=== PATIENT | female | born 1945 | race Caucasian/White ===

== ENCOUNTER → 2019-02-05 | Outpatient (CLI) | payer MEDICARE | END | disposition home or self-care (01) | LOC: LAB EV 23:10 → LAB SHORT 23:10 | DX: N18.9 Chronic kidney disease, unspecified (principal); M81.0 Age-related osteoporosis without current pathological fracture; R19.5 Other fecal abnormalities | CPT/HCPCS: 87015; 87045; 87046; 87205; 87329; 87493; 87899 ==

== ENCOUNTER 2020-05-18 19:34 | Inpatient (IN) | payer MEDICARE ==
[~2020-05-18] VITALS: Ht 160 cm; Wt 99.8 kg
[2020-05-18 20:02] LABS: PCO2 Arterial 61.2 mmHg (35-45); pH Blood Arterial 7.29 (7.35-7.45)
[2020-05-18 20:03] LABS: BASOPHILS ABSOLUTE AUTO 0.07 K/mm3 (0.00-0.23); BASOPHILS PERCENT AUTO 1 % (0-2); EOSINOPHILS ABSOLUTE AUTO 0.97 K/mm3 (0.00-0.68); EOSINOPHILS PERCENT AUTO 7 % (0-6); Hematocrit 41.8 % (33.0-51.0); Hemoglobin 12.5 g/dL (11.5-16.0); IMMATURE GRAN PERCENT AUTO 1 % (0-1); LYMPHOCYTES ABSOLUTE AUTO 2.68 K/mm3 (0.84-5.20); LYMPHOCYTES PERCENT AUTO 18 % (21-46); MONOCYTES ABSOLUTE AUTO 1.36 K/mm3 (0.16-1.47); MONOCYTES PERCENT AUTO 9 % (4-13); Mean Corpuscular HGB 27.1 pg (26.0-34.0); Mean Corpuscular HGB Conc 29.9 g/dL (31.5-36.5); Mean Corpuscular Volume 91 fL (80-100); Mean Platelet Volume 10.3 fL (9.1-12.4); NEUTROPHILS ABSOLUTE AUTO 9.55 K/mm3 (1.96-9.15); NEUTROPHILS PERCENT AUTO 65 % (41-73); Platelet Count 241 K/mm3 (150-400); RDW Coefficient Variation 15.4 % (11.7-14.2); RDW Standard Deviation 50.6 fL (35.1-46.3); Red Blood Cell Count 4.62 M/mm3 (3.80-5.20); White Blood Cell Count 14.73 K/mm3 (4.00-11.30)
[2020-05-18] MEDS ORDERED: METFORMIN HCL500 M2 PO (20:13)
[2020-05-18 20:26] LABS: Alanine Aminotransfer (ALT/SGP 30 U/L (12-78); Albumin, Blood 3.7 g/dL (3.4-5.0); Albumin/Globulin Ratio 1.1 (0.8-1.8); Alk Phos 83 U/L (50-136); Anion Gap 6 mmol/L (6-16); Aspartate Aminotrans (AST/SGOT 35 U/L (12-37); Bilirubin, Total 0.6 mg/dL (0.1-1.0); Blood Urea Nitrogen 52 mg/dL (8-24); Bun/Creatinine Ratio 28.4 (12.0-20.0); CO2, Blood 26 mmol/L (21-32); Chloride, Blood 103 mmol/L (98-108); Creatinine, Blood 1.83 mg/dL (0.40-1.00); Globulin, Blood 3.4 g/dL (2.2-4.0); Glomerular Filtration Rate 28 (60-); Glucose, Blood 145 mg/dL (70-99); Potassium, Blood 5.4 mmol/L (3.5-5.5); Sodium, Blood 135 mmol/L (136-145); Total Protein, Blood 7.1 g/dL (6.4-8.2); Troponin I <0.015 ng/mL (0.000-0.040)
[2020-05-18 21:10] LABS: Influenza A, PCR Negative (NEGATIVE); Influenza B, PCR Negative (NEGATIVE); Resp Syncytial Virus, PCR Negative (NEGATIVE); SARS-Cov-2 (COVID-19) PCR, MMC Negative (NEGATIVE)
[2020-05-18] MEDS ORDERED: LOSA25 PO (21:19)
[2020-05-18] MEDS ORDERED: ATOR20 PO (21:19)
[2020-05-18] MEDS ORDERED: POTA10T PO (21:20)
[2020-05-18] MEDS ORDERED: OMEP20ER PO (21:21)
[2020-05-18] MEDS ORDERED: ALBU90OI6 INH (21:23)
--- NOTE | 2020-05-19 00:48 | NUR ---
ADMIT NOTE PT ARRIVED TO PCU FROM ED VIA ED STRETCHER AT APPROX 2300. PT SCOOTED HERSELF FROM ED STRETCHER TO PCU BED, SLOWLY, WITH MINIMAL ASSISTANCE. PT IS A&OX4. SP02>92% ON BIPAP, FI02 30, RR 12. UPON ARRIVAL PT STATED SHE "COULDNT BREATHE" THOUGH STATS WERE IN 90'S. RT IN ROOM TO ASSIST PT AND GIVE BREATHING TREATMENT. PT BASELINE IS 3.5 L NC OF 02. PT TOLERATED TAKING BIPAP OFF AND WEARING NC FOR SHORT TIME TO TAKE EVENING MEDS AND PUT GOWN ON. TELEMETRY READS ST, HR 100'S. PT IS NPO PER ORDERS. NS INFUSING PER EMAR. PT ORIENTED TO ROOM AND CALL LIGHT. WILL CONTINUE TO MONITOR.
[2020-05-19 02:15] LABS: BASOPHILS ABSOLUTE AUTO 0.03 K/mm3 (0.00-0.23); BASOPHILS PERCENT AUTO 0 % (0-2); EOSINOPHILS ABSOLUTE AUTO 0.03 K/mm3 (0.00-0.68); EOSINOPHILS PERCENT AUTO 0 % (0-6); Hematocrit 39.7 % (33.0-51.0); Hemoglobin 11.8 g/dL (11.5-16.0); IMMATURE GRAN ABSOLUTE AUTO 0.08 K/mm3 (0.00-0.10); IMMATURE GRAN PERCENT AUTO 1 % (0-1); LYMPHOCYTES ABSOLUTE AUTO 0.37 K/mm3 (0.84-5.20); LYMPHOCYTES PERCENT AUTO 2 % (21-46); MONOCYTES ABSOLUTE AUTO 0.07 K/mm3 (0.16-1.47); MONOCYTES PERCENT AUTO 1 % (4-13); Mean Corpuscular HGB 26.9 pg (26.0-34.0); Mean Corpuscular HGB Conc 29.7 g/dL (31.5-36.5); Mean Corpuscular Volume 91 fL (80-100); Mean Platelet Volume 10.9 fL (9.1-12.4); NEUTROPHILS ABSOLUTE AUTO 14.58 K/mm3 (1.96-9.15); NEUTROPHILS PERCENT AUTO 96 % (41-73); Platelet Count 212 K/mm3 (150-400); RDW Coefficient Variation 15.3 % (11.7-14.2); RDW Standard Deviation 51.7 fL (35.1-46.3); Red Blood Cell Count 4.38 M/mm3 (3.80-5.20); White Blood Cell Count 15.16 K/mm3 (4.00-11.30)
[2020-05-19 02:16] LABS: Base Excess Venous 0.6 mmol/L; Bicarbonate Venous 23.9 mmol/L (24.0-30.0); PCO2 Venous 56.4 mmHg (38-42); PO2 Venous 55.6 mmHg (38-42); pH Blood Venous 7.29 (7.34-7.37)
[2020-05-19 02:31] LABS: Bun/Creatinine Ratio 30.3 (12.0-20.0); Calcium, Blood 8.3 mg/dL (8.5-10.1); Creatinine, Blood 2.01 mg/dL (0.40-1.00); Potassium, Blood 5.5 mmol/L (3.5-5.5)
--- NOTE | 2020-05-19 06:01 | NUR ---
SHIFT SUMMARY PT A&OX4. SP02>92% ON BIPAP, FI02 30. PT WAS ABLE TO REMOVE BIPAP AND WEAR NC @ 4L TO PERFORM ORAL CARE. TELEMETRY READS SR, HR 80'S. PT STATES NO PAIN. C/O OF WEAKNESS. PT ATTEMPTED TO USE BEDPAN TWICE TO VOID WITH NO SUCCESS. WANTED TO AMBULATE TO BATHROOM BUT STATES HAS BEEN TOO WEAK AT HOME TO AMBULATE. PT REMAINS NPO EXCEPT FOR MEDS PER ORDERS. NS INFUSING PER EMAR. CALL LIGHT WITHIN REACH. WILL CONTINUE TO MONITOR.
[2020-05-19 08:02] LABS: Source, Urine Catheter
[2020-05-19 08:10] LABS: Appearance, Urine Clear (Clear); Bilirubin, Urine Neg (Neg); Blood, Urine Neg (Neg); Color, Urine Yellow (P-Yellow); Glucose Qualitative, Urine Neg (Neg); Ketones, Urine Neg (Neg); Leukocyte Esterase, Urine Neg (Neg); Nitrite, Urine Neg (Neg); Protein, Urine Neg (Neg); Urobilinogen, Urine NORM (Normal)
[2020-05-19 11:33] LABS: Adenovirus Not Detected (NOT DETECT); Bordetella pertussis Not Detected (NOT DETECT); Chlamydophila pneumoniae Not Detected (NOT DETECT); Coronavirus 229E Not Detected (NOT DETECT); Coronavirus HKU1 Not Detected (NOT DETECT); Coronavirus NL63 Not Detected (NOT DETECT); Coronavirus OC43 Not Detected (NOT DETECT); Human Metapneumovirus Not Detected (NOT DETECT); Human Rhinovirus/Enterovirus Not Detected (NOT DETECT); Influenza A/2009-H1 Not Detected (NOT DETECT); Influenza A/H1 Not Detected (NOT DETECT); Influenza A/H3 Not Detected (NOT DETECT); Influenza B Not Detected (NOT DETECT); Mycoplasma pneumoniae Not Detected (NOT DETECT); Parainfluenza Virus 1 Not Detected (NOT DETECT); Parainfluenza Virus 2 Not Detected (NOT DETECT); Parainfluenza Virus 3 Not Detected (NOT DETECT); Parainfluenza Virus 4 Not Detected (NOT DETECT); Respiratory Syncytial Virus Not Detected (NOT DETECT); SARS-Cov-2 (COVID-19), BioFire Not Detected (NOT DETECT)
--- NOTE | 2020-05-19 16:39 | NUR ---
TRANSFER NOTE- PT ARRIVED ON MEDICAL FLOOR, REPORT COMPLETED VIA TELEPHONE PRIOR TO TRANSFER. PT LUNG SOUNDS COARSE AND CRACKLY. HARSH, MOIST PRODUCTIVE COUGH NOTED ON ARRIVAL SPUTUM SAMPLE COLLECTED EARLIER TODAY AND SENT TO THE LAB. PT DOES NOT APPEAR TO BE IN DISTRESS, CALLED RT SIMRAN FOR CONT BIOX TO MONITOR O2 SATS. PT IN BED WITH THE CALL LIGHT IN REACH, IV IS POSITIONAL.
--- NOTE | 2020-05-19 17:06 | NUR ---
PT SUMMARY: STATUS CHANGED TO MEDICAL WITH TELE. PT ALERT AND ORIENTED AT BASELINE, VITALS HRR SR/ST 90-110'S, BP SYSTOLIC 120, SATS ABOVE 90% ON 3.5L OF 02 ALTERNATES BIPAP FIO2 30% PT STILL GETS SOB/SOB WITH EXERTION. WAS ABLE TO WORK WITH PT/OT DESATS TO 86% RECOVERS QUICK ON 4L OF O2. DIET RESUMED TO CARDIAC. PT WAS BLADDER SCANNED AT THE BEGINNING OF THE SHIFT PT C/O NOT BEING ABLE TO URINATE >700MLS OBTAINED, ORDER TO PUT PETTIT IN PLACE HAD 900MLS OUT. URINE CLEAR YELLOW IN APPEARANCE. PT WAS UP IN THE RECLINER MOST OF THE SHIFT TOELERATED WELL. NS RUNNING AT 50MLS/HR, WAS ALSO STARTED ON IV ABO. PT WAS TRANSFERRED TO RM 327, REPORT GIVEN TO JOSEPH DONNELLY, PT TRANSFERRED VIA BED, ALL BELONGINGS SENT WITH PT.
--- NOTE | 2020-05-19 19:26 | NUR ---
SHIFT SUMMARY- PT ALERT AND ORIENTED X4 1PA FOR TRANSFERS. PT CURRENTLY UP IN THE RECLINER PER HER REQUEST. PT SATS DROPPED TO THE LOW 80'S AND WAS NOT INCREASING ABOVE 88% UNTIL O2 FLOW WAS INCREASED TO 5L. CALLED RT VASILE AND HE CAME TO SEE THE PT. SHE JUST COMPLETED A BREATHING Tx. SINUS TACH AT 111 ON TELE AT THE TIME OF SHIFT CHANGE. RESP RATE MORE REGULAR AT THIS TIME, NO LONGER PURSED LIP BREATHING. PASSED ALL ON IN BEDSIDE REPORT TO NIGHT CONY KRAMER.
[2020-05-19] MEDS ORDERED: PRED20 PO (23:38)
--- NOTE | 2020-05-20 04:32 | NUR ---
SHIFT SUMMARY PATIENT HAD NO ACUTE CHANGES OBSERVED. ON 5L O2 NC AND 3.5L O2 BASELINE. SOB WITH EXERTION. RT IN FOR MULTIPLE BREATHING TX AND UP TO 7L FOR FIFTEEN MINUTES PER RT WHEN SOB AND BACK TO 5L. REFUSED BIPAP MULTIPLE TIMES. CBG 231. DENIES PAIN AND N/V. PETTIT PATENT AND DRAINING. PIV REMAINS INTACT. PARTS REMOVER REPORTS NSR 99. CONTINUOUS PULSE OXIMETRY STATING 97%. AXO X3 AND ONE ASSIST. COOPERATIVE WITH CARE. CALL LIGHT IN REACH. BED IN LOWEST POSITION. WILL CONTINUE TO MONITOR UNTIL DAY SHIFT NURSE ASSUMES CARE.
[2020-05-20 05:58] LABS: BASOPHILS ABSOLUTE AUTO 0.01 K/mm3 (0.00-0.23); BASOPHILS PERCENT AUTO 0 % (0-2); EOSINOPHILS ABSOLUTE AUTO 0.01 K/mm3 (0.00-0.68); EOSINOPHILS PERCENT AUTO 0 % (0-6); Hematocrit 39.2 % (33.0-51.0); IMMATURE GRAN ABSOLUTE AUTO 0.08 K/mm3 (0.00-0.10); IMMATURE GRAN PERCENT AUTO 1 % (0-1); LYMPHOCYTES ABSOLUTE AUTO 0.52 K/mm3 (0.84-5.20); LYMPHOCYTES PERCENT AUTO 3 % (21-46); MONOCYTES ABSOLUTE AUTO 0.18 K/mm3 (0.16-1.47); MONOCYTES PERCENT AUTO 1 % (4-13); Mean Corpuscular HGB 27.6 pg (26.0-34.0); Mean Corpuscular HGB Conc 30.6 g/dL (31.5-36.5); Mean Corpuscular Volume 90 fL (80-100); Mean Platelet Volume 11.1 fL (9.1-12.4); NEUTROPHILS ABSOLUTE AUTO 14.56 K/mm3 (1.96-9.15); NEUTROPHILS PERCENT AUTO 95 % (41-73); Platelet Count 191 K/mm3 (150-400); RDW Coefficient Variation 15.1 % (11.7-14.2); Red Blood Cell Count 4.35 M/mm3 (3.80-5.20); White Blood Cell Count 15.36 K/mm3 (4.00-11.30)
[2020-05-20 06:17] LABS: Albumin, Blood 3.5 g/dL (3.4-5.0); Bilirubin, Total 0.3 mg/dL (0.1-1.0); Bun/Creatinine Ratio 36.8 (12.0-20.0); C-REACTIVE PROTEIN, EXT RANGE 1.18 mg/dL (0.000-0.300); Calcium, Blood 8.9 mg/dL (8.5-10.1); Creatinine, Blood 1.82 mg/dL (0.40-1.00); Globulin, Blood 3.4 g/dL (2.2-4.0); Magnesium, Blood 2.8 mg/dL (1.6-2.4); Phosphorus, Blood 4.4 mg/dL (2.5-4.9); Potassium, Blood 5.4 mmol/L (3.5-5.5); Total Protein, Blood 6.9 g/dL (6.4-8.2)
--- NOTE | 2020-05-20 07:20 | NUR ---
CALLED RT SIMRAN- PT ON THE BSC AT CHANGE OF SHIFT, SHE HAD AN ACCIDENT ON HER WAY TO THE [facility], PT HAD AN INCREASED WORK OF BREATHING AND NIGHT STAFF HAD INCREASED O2 TO 7L. SATS 91% WITH THE PURSED LIP BREATHING AND ACCESSORY MUSCLE USE. ONCE PT WAS CLEANED AND IN THE RECLINER RT CAME IN PLACED PT ON OXEMIZER AND ADMINISTERED A Tx. PT DID NOT WEAR HER BIPAP LAST NIGHT SHE STATED SHE WAS COUGHING UP A LOT OF STUFF AND DIDNT WANT TO PUT THE MASK ON. PT WAS ENCOURAGED TO WEAR THE MASK THIS MORNING SO SHE COULD RECOVER FROM THE STRESS OF THE MOVEMENT. RT IS STILL AT THE BEDSIDE NOW.
--- NOTE | 2020-05-20 18:46 | NUR ---
SHIFT SUMMARY- PT ALERT AND ORIENTED 1PA WITH TRANSFERS. PT HAS HAD A COUPLE OF EPISODES TODAY WHEN SHE GETS UP TO THE TOILET (BSC) HER SATS DROP AND SHE HAS TROUBLE RECOVERING, RT WAS CALLED O2 CHANGED FROM NC TO OXIMIEZER AND PT WAS PLACED ON BIPAP TO AID IN RECOVERY. THE LAST EPISODE DID NOT REQUIRE THE BIPAP FOR THE PT TO RECOVER JUST THE OXIMEIZER AND AN O2 INCREASE TO 5L VIA NC. PT WILL USE THE BIPAP TONIGHT. WILL PASS ALL ON IN BEDSIDE REPORT TO NIGHT RN. PT SEEMS TO BE FEELING BETTER THIS EVENING 2 SOFT BM'S TODAY, PT HAS URGENCY WHEN SHE NEEDS TO HAVE A BM AND THERE HAVE BEEN SOME ACCIDENTS, STAFF SHOULD BE PREPARED.
--- NOTE | 2020-05-21 03:41 | NUR ---
SHIFT SUMMARY PATIENT HAD NO ACUTE CHANGES OBSERVED. AXOX 3 AND ONE ASSIST TO BSC. ON 4L O2 OXIMIZER AND ON 6L O2 FOR RECOVERY WHEN UP TO CHAIR OR BSC. WILL DESTAT INTO THE 80'S WHEN GETTING UP. RT IN FOR MULTIPLE BREATHING TX. WEARS BIPAP INTERMITTENTLY. VSS/AFEBRILE. DENIES PAIN AND N/V. CBG 169. PROJECT COORDINATOR RN REPORTS NSR 90. PETTIT PATENT AND DRAINING. XANAX GIVEN X ONE FOR ANXIETY. PATIENT DESTATS WHEN ANXIOUS. REPORTS LESS ANXIETY. CALL LIGHT IN REACH. BED IN LOWEST POSITION. WILL CONTINUE TO MONITOR UNTIL DAY SHIFT NURSE ASSUMES CARE.
[2020-05-21 05:05] LABS: BASOPHILS ABSOLUTE AUTO 0.01 K/mm3 (0.00-0.23); BASOPHILS PERCENT AUTO 0 % (0-2); EOSINOPHILS PERCENT AUTO 0 % (0-6); Hematocrit 40.2 % (33.0-51.0); Hemoglobin 11.8 g/dL (11.5-16.0); IMMATURE GRAN PERCENT AUTO 1 % (0-1); LYMPHOCYTES ABSOLUTE AUTO 0.48 K/mm3 (0.84-5.20); LYMPHOCYTES PERCENT AUTO 4 % (21-46); MONOCYTES ABSOLUTE AUTO 0.27 K/mm3 (0.16-1.47); MONOCYTES PERCENT AUTO 2 % (4-13); Mean Corpuscular HGB 26.8 pg (26.0-34.0); Mean Corpuscular HGB Conc 29.4 g/dL (31.5-36.5); Mean Corpuscular Volume 91 fL (80-100); Mean Platelet Volume 10.3 fL (9.1-12.4); NEUTROPHILS ABSOLUTE AUTO 12.75 K/mm3 (1.96-9.15); NEUTROPHILS PERCENT AUTO 94 % (41-73); Platelet Count 206 K/mm3 (150-400); RDW Coefficient Variation 15.1 % (11.7-14.2); RDW Standard Deviation 51.3 fL (35.1-46.3); White Blood Cell Count 13.61 K/mm3 (4.00-11.30)
[2020-05-21 05:30] LABS: Bun/Creatinine Ratio 40.2 (12.0-20.0); Calcium, Blood 9.1 mg/dL (8.5-10.1); Creatinine, Blood 1.89 mg/dL (0.40-1.00); Potassium, Blood 5.7 mmol/L (3.5-5.5)
--- NOTE | 2020-05-21 19:31 | NUR ---
PT UP TO CHAIR MOST OF THE DAY, IS BEGINNING TO LOOK AND FEEL BETTER, NOT DESATTING MUCH WITH ACTIVITY. NO ACUTE CHANGES NOTED, WILL CONTINUE TO MONITOR AND REPORT TO ONCOMING RN
--- NOTE | 2020-05-22 05:13 | NUR ---
SHIFT SUMMARY ASSUMED CARE OF PT AT 1900. PT IS A/OX4. HEART SOUNDS DISTANT, TELE SHOWS SINUS PAC @ 94. LUNG SOUNDS HAVE WHEEZES T/O, PT RECEIVED BREATHING TREATMENTS T/O THE NIGHT. PT IS ON 3-4L NC T/O THE NIGHT. PT ONLY TOLERATED CPAP FOR ABOUT 2 HOURS LAST NIGHT. PT HAS A PETTIT, URINE IS CLEAR AND YELLOW. PT ASKED FOR TYLENOL FOR BACK PAIN AND XANAX FOR HER ANXIETY ONCE. PT SLEPT ON AND OFF T/O THE NIGHT. CALL LIGHT IN REACH, BED IN LOWEST POSTION, WILL CONTINUE TO MONITOR.
[2020-05-22 05:27] LABS: BASOPHILS ABSOLUTE AUTO 0.01 K/mm3 (0.00-0.23); BASOPHILS PERCENT AUTO 0 % (0-2); EOSINOPHILS ABSOLUTE AUTO 0.01 K/mm3 (0.00-0.68); EOSINOPHILS PERCENT AUTO 0 % (0-6); Hematocrit 40.6 % (33.0-51.0); Hemoglobin 11.9 g/dL (11.5-16.0); IMMATURE GRAN ABSOLUTE AUTO 0.12 K/mm3 (0.00-0.10); IMMATURE GRAN PERCENT AUTO 1 % (0-1); LYMPHOCYTES ABSOLUTE AUTO 0.35 K/mm3 (0.84-5.20); LYMPHOCYTES PERCENT AUTO 3 % (21-46); MONOCYTES ABSOLUTE AUTO 0.31 K/mm3 (0.16-1.47); MONOCYTES PERCENT AUTO 3 % (4-13); Mean Corpuscular HGB 26.7 pg (26.0-34.0); Mean Corpuscular HGB Conc 29.3 g/dL (31.5-36.5); Mean Corpuscular Volume 91 fL (80-100); Mean Platelet Volume 10.7 fL (9.1-12.4); NEUTROPHILS ABSOLUTE AUTO 9.79 K/mm3 (1.96-9.15); NEUTROPHILS PERCENT AUTO 93 % (41-73); Platelet Count 191 K/mm3 (150-400); RDW Coefficient Variation 14.9 % (11.7-14.2); RDW Standard Deviation 50.3 fL (35.1-46.3); Red Blood Cell Count 4.46 M/mm3 (3.80-5.20); White Blood Cell Count 10.59 K/mm3 (4.00-11.30)
[2020-05-22 05:52] LABS: Albumin, Blood 3.3 g/dL (3.4-5.0); Bilirubin, Total 0.2 mg/dL (0.1-1.0); Bun/Creatinine Ratio 45.6 (12.0-20.0); Calcium, Blood 8.6 mg/dL (8.5-10.1); Creatinine, Blood 1.71 mg/dL (0.40-1.00); Globulin, Blood 3.3 g/dL (2.2-4.0); Potassium, Blood 5.6 mmol/L (3.5-5.5); Total Protein, Blood 6.6 g/dL (6.4-8.2)
--- NOTE | 2020-05-22 17:33 | NUR ---
PATIENT A/OX4, UP WITH FWW AND 1 ASSIST. DYSPNEIC WITH EXERTION, O2 3-5L VIA NC TODAY TO MAINTAIN SATS. CPAP IN ROOM, PATIENT DOESN'T TOLERATE WELL. TYLENOL GIVEN X1 FOR BACK PAIN AND XANAX FOR ANXIETY. PATIENT IS TOLERATING CARDIAC/ADA DIET. BLOOD SUGARS ACHS, COVERAGE PER SS. HODAN BERRIOS'Blanca TODAY AT 1545. DR JONES CONSULTING. COOPERATIVE WITH CARE, CALLS APPROPRIATELY FOR ASSISTANCE.
--- NOTE | 2020-05-23 04:27 | NUR ---
SHIFT SUMMARY ASSUMED CARE OF PT AT 1900. PT IS A/OX4. HEART SOUNDS REGULAR, TELE SHOWS SINUS TACH WITH PAC @ 105. LUNG SOUNDS HAVE WHEEZING T/O, RT CONSULTED WITH CARE, PT TOLERATED CPAP FOR ABOUT 2 HOURS. PT WAS CONTIENT AND WALKED TO BATHROOM WITH WALKER. NO ACUTE EVENTS DURING THE NIGHT. PT SLEPT MOST OF THE NIGHT. CALL LIGHT IN REACH, BED IN LOWEST POSTION.
[2020-05-23 05:45] LABS: Hematocrit 40.5 % (33.0-51.0)
[2020-05-23 06:11] LABS: CPK Creatine Kinase 89 U/L (26-193); Magnesium, Blood 2.6 mg/dL (1.6-2.4); Uric Acid, Blood 6.6 mg/dL (2.6-6.0)
[2020-05-23 06:12] LABS: Alanine Aminotransfer (ALT/SGP 54 U/L (12-78); Albumin, Blood 3.3 g/dL (3.4-5.0); Alk Phos 58 U/L (50-136); Anion Gap 4 mmol/L (6-16); Aspartate Aminotrans (AST/SGOT 32 U/L (12-37); Bilirubin, Direct <0.1 mg/dL (0.0-0.3); Bilirubin, Indirect Unable to Calculate mg/dL (0.1-0.7); Bilirubin, Total 0.2 mg/dL (0.1-1.0); Blood Urea Nitrogen 88 mg/dL (8-24); Bun/Creatinine Ratio 51.2 (12.0-20.0); CO2, Blood 31 mmol/L (21-32); Calcium, Blood 8.5 mg/dL (8.5-10.1); Chloride, Blood 102 mmol/L (98-108); Creatinine, Blood 1.72 mg/dL (0.40-1.00); Globulin, Blood 3.2 g/dL (2.2-4.0); Glomerular Filtration Rate 31 (60-); Glucose, Blood 140 mg/dL (70-99); Phosphorus, Blood 5.5 mg/dL (2.5-4.9); Potassium, Blood 4.7 mmol/L (3.5-5.5); Sodium, Blood 137 mmol/L (136-145); Total Protein, Blood 6.5 g/dL (6.4-8.2)
--- NOTE | 2020-05-23 18:04 | NUR ---
SHIFT SUMMARY- PT IS A/O, PLESANT AND COOPERATIVE. SHE IS EATING AND DRINKING WELL. HER O2 SATS HAVE MAINTAINED THIS SHIFT. SHE WAS UP TO THE CHAIR FOR MOST OF THIS SHIFT. SHE HAD A VISITOR THIS AFTERNOON. HER BED IS IN THE LOW POSITION AND CALL LIGHT IS WITHIN REACH.
--- NOTE | 2020-05-24 04:58 | NUR ---
SHIFT SUMMARY ASSUMED CARE OF PT AT 1900. PT IS A/OX4. HEART SOUNDS REGULAR, TELE SHOWS SINUS TACH PAC @ 95. LUNG SOUNDS HAVE INSPIRATORY AND EXPIRIATORY WHEEZING, PT HAS BEEN ON 3 L T/O THE NIGHT. PT TOLERATED CPAPA FOR ABOUT 3 HOURS DURING THE NIGHT. PT WAS A 1P SBA WITH WALKER TO BATHROOM AND CHAIR. NO ACUTE EVENTS DURING THE NIGHT. PT WAS ABLE TO SLEEP DURING THE NIGHT. CALL LIGHT IN REACH, BED IN LOWEST POSTION.
[2020-05-24 05:25] LABS: Hematocrit 36.8 % (33.0-51.0)
[2020-05-24 05:38] LABS: Albumin, Blood 3.1 g/dL (3.4-5.0); Anion Gap 1 mmol/L (6-16); Blood Urea Nitrogen 84 mg/dL (8-24); CO2, Blood 36 mmol/L (21-32); Calcium, Blood 8.2 mg/dL (8.5-10.1); Chloride, Blood 100 mmol/L (98-108); Creatinine, Blood 1.68 mg/dL (0.40-1.00); Glomerular Filtration Rate 31 (60-); Glucose, Blood 132 mg/dL (70-99); Magnesium, Blood 2.6 mg/dL (1.6-2.4); Phosphorus, Blood 4.5 mg/dL (2.5-4.9); Potassium, Blood 4.3 mmol/L (3.5-5.5); Sodium, Blood 137 mmol/L (136-145)
--- NOTE | 2020-05-24 17:35 | NUR ---
ADMIT: 05/18/20 DISCHARGE: DX: arf with hypoxia CC: cpeabody ERIC CALL: RESIDENCE: home, with family?? CAREGIVER: Child Cole [phone] child Aman [phone] DX: copd. chronic back pain, ckd, djd htn, dm2 see list DME: oxygen 3 l/m 24 hours, 4 ww, electric wheelchair CCM: no record HOME HEALTH: no record SUMMARY: Admit 05/18/20 05/24/20 Chart review, PT OT both recommend SNF vs Home health, Adwoa is improving but still desaturates needing 6 l/m with activity. Normally at home requires 3 l/m 24 hours. Will discuss SNF preference with Adwoa Sunday. Possible eta for snf Sunday per Dr Burroughs.cp 05/23/20- per chart review with Dr. Vera. Rob as consulted with pt. due to acute on chronic Kidney disease. Pt still requiring oxygen, 4L. Still having significant [place]. No est. ETA for d/c at this time. -kjw 05/20/20 PT and OT rec SNF for rehab, Per Dr Franks no ETA for discharge at this time..cp 05/19/20 No ETA discharge. cp 05/18/20 IMPRESSION: 1. Acute hypoxic and hypercapnic respiratory failure in the setting of chronic obstructive pulmonary disease with exacerbation and bilateral pneumonia. The patient placed on the BiPAP. We will put the patient on Solu-Medrol and BD protocol. The patient started on Rocephin, Zithromax, and IV fluids. Sputum culture, blood cultures have been ordered.
--- NOTE | 2020-05-24 19:29 | NUR ---
SHIFT SUMMARY: PT A&O; CALM AND COOPERATIVE WITH CARE. NO C/O PAIN THIS SHIFT. TELE IN PLACE; ST @ 130 AFTER TRIP TO ; HR 80-90s. PT USES 3.5-4L O2 @ HOME; IN HOSPITAL PT IS REQUIRING 3L @ REST; 6L WITH EXERTION. PO STEROIDS CHANGED TO IV STEROIDS THIS SHIFT; LUNGS REMAIN WHEEZY. REPORT GIVEN TO ONCOMING RN.
--- NOTE | 2020-05-25 05:29 | NUR ---
EGG PROCESSING SUPERVISOR SUMMARY PT AAOX4 AND VERY PLEASANT. CALLS APPROPRIATELY FOR ASSISTANCE. REMAINS ON 4L O2 VIA NC AND THEN USING CPAP AT NIGHT. PT HAVING SOME THICK SPUTUM PRODUCTION THAT SHE REPORTS "GETS STUCK" SOMETIMES. ASSISTED PT WITH PULMONARY TOILETING TECHNIQUES TO CLEAR SPUTUM. PT DOES DESAT AND GET SOB WITH EXERTION, HAS BEEN GETTING [place] [facility] [place]HR[place]OM DUE TO THIS. DENIES PAIN. VSS, WILL CONTINUE TO MONITOR.
[2020-05-25 05:30] LABS: BASOPHILS ABSOLUTE AUTO 0.01 K/mm3 (0.00-0.23); BASOPHILS PERCENT AUTO 0 % (0-2); EOSINOPHILS PERCENT AUTO 0 % (0-6); Hematocrit 39.1 % (33.0-51.0); Hemoglobin 11.8 g/dL (11.5-16.0); IMMATURE GRAN ABSOLUTE AUTO 0.11 K/mm3 (0.00-0.10); IMMATURE GRAN PERCENT AUTO 1 % (0-1); LYMPHOCYTES PERCENT AUTO 5 % (21-46); MONOCYTES ABSOLUTE AUTO 0.18 K/mm3 (0.16-1.47); MONOCYTES PERCENT AUTO 2 % (4-13); Mean Corpuscular HGB 26.9 pg (26.0-34.0); Mean Corpuscular HGB Conc 30.2 g/dL (31.5-36.5); Mean Corpuscular Volume 89 fL (80-100); Mean Platelet Volume 10.6 fL (9.1-12.4); NEUTROPHILS ABSOLUTE AUTO 8.45 K/mm3 (1.96-9.15); NEUTROPHILS PERCENT AUTO 91 % (41-73); Platelet Count 158 K/mm3 (150-400); RDW Coefficient Variation 14.5 % (11.7-14.2); RDW Standard Deviation 47.2 fL (35.1-46.3); Red Blood Cell Count 4.39 M/mm3 (3.80-5.20); White Blood Cell Count 9.25 K/mm3 (4.00-11.30)
[2020-05-25 05:54] LABS: Albumin, Blood 3.4 g/dL (3.4-5.0); Anion Gap 4 mmol/L (6-16); Blood Urea Nitrogen 68 mg/dL (8-24); Bun/Creatinine Ratio 46.6 (12.0-20.0); CO2, Blood 35 mmol/L (21-32); Calcium, Blood 8.4 mg/dL (8.5-10.1); Chloride, Blood 100 mmol/L (98-108); Creatinine, Blood 1.46 mg/dL (0.40-1.00); Glomerular Filtration Rate 37 (60-); Glucose, Blood 162 mg/dL (70-99); Magnesium, Blood 2.6 mg/dL (1.6-2.4); Phosphorus, Blood 3.5 mg/dL (2.5-4.9); Potassium, Blood 4.2 mmol/L (3.5-5.5); Sodium, Blood 139 mmol/L (136-145)
--- NOTE | 2020-05-25 18:46 | NUR ---
SHIFT SUMMARY: NO ACUTE CHANGES TO REPORT THIS SHIFT. PT A&O; CALM AND COOPERATIVE WITH CARE. NO C/O PAIN/ NAUSEA THIS SHIFT. O2 @ 3-4L @ REST, 6L WITH EXERTION; PT IS SLOW TO RECOVER AFTER PHYSICAL ACTIVITY. IV STEROIDS CONTINUING. WCTM.
--- NOTE | 2020-05-25 19:10 | NUR ---
ASSUMED CARE RECEIVED REPORT FROM CONY ZHANG. ASSUMED CARE OF PT. RESTING COMFORTABLY, NO S/S ACUTE DISTRESS NOTED. DENIES NEEDS AT THIS TIME. CALL LIGHT, POSSESSIONS IN REACH, TM.
--- NOTE | 2020-05-25 19:14 | NUR ---
SUMMARY: ADMIT 05/18/20 05/25/20 MET WITH ROSE, REVIEWED EFM ASSESSMENT, PT OT RECOMMEND SNF, ROSE REFUSES SNF. HAS FAMILY HOME WITH HER AT ALL TIMES. RESPIRATORY THERAPY IS RECOMMENDING A TRILOGY FOR NOCTURNAL VENTILATION, LAURITA IS SENDING A PARACHUTE ORDER TO DR WELSH TO COMPLETE AND SIGN. LAURITA WILL SET UP TRIOLOGY BEFORE SHE DISCHARGES HOME. ETA DISCHARGE SUNDAY PER DR WELSH ROSE USES [facility] AT [facility]. FAMILY CAN PICK HER UP FOR TRANSPORATION HOME. PLAN TO FOLLOW PATIENT UP TO DISCHARGE. CP
--- NOTE | 2020-05-26 04:12 | NUR ---
SHIFT SUMMARY PT ASLEEP, NO S/S ACUTE DISTRESS NOTED. WAS MONITORED EVERY 1-2 HOURS WITH NEEDS MET. VS REVIEWED, WNL, 02 SATS STABLE ON CPAP/NC, O2 SATS RECOVER WELL POST ACTIVITY. PT DENIES PAIN OR NEEDS. CALL LIGHT, POSSESSIONS IN REACH, BED IN LOW POSITION. CONTINUE TO MONITOR UNTIL DAY RN ASSUMES CARE.
[2020-05-26 04:54] LABS: Hematocrit 39.3 % (33.0-51.0); Hemoglobin 11.8 g/dL (11.5-16.0)
[2020-05-26 05:19] LABS: Albumin, Blood 3.4 g/dL (3.4-5.0); Anion Gap 5 mmol/L (6-16); Blood Urea Nitrogen 79 mg/dL (8-24); Bun/Creatinine Ratio 52.3 (12.0-20.0); CO2, Blood 40 mmol/L (21-32); Calcium, Blood 8.1 mg/dL (8.5-10.1); Chloride, Blood 95 mmol/L (98-108); Creatinine, Blood 1.51 mg/dL (0.40-1.00); Glomerular Filtration Rate 36 (60-); Glucose, Blood 151 mg/dL (70-99); Magnesium, Blood 2.5 mg/dL (1.6-2.4); Phosphorus, Blood 4.3 mg/dL (2.5-4.9); Potassium, Blood 3.7 mmol/L (3.5-5.5); Sodium, Blood 140 mmol/L (136-145)
--- NOTE | 2020-05-26 16:46 | NUR ---
05/26/[address] Burroughs, possible discharge as early as . Using 5 l/m of oxygen today at rest and with exertion. Did not desaturate during activity. If continues to use 5 l/m, will need new home oxygen evaluation prior to discharge to increase liter. Need to change oxygen order in parachute and send to [facility]. PT Changed recommendation to: PT Follow-Up/ Home Health Setting/ Home Caregiver Assist/ [employer]/ [facility] to deliver Triliogy today for Adwoa to use tonight in hosptial. Nocturnal 02 bleed in 3-4 l/m. Discussed Trilogy and insurance coverage with Adwoa, she feels the benefit of the therapy and understands that will help her CO2 levels stay lower.
--- NOTE | 2020-05-26 16:53 | NUR ---
PATIENT A/OX4, UP WITH FWW AND SBA. 4-6LO2 TO MAINTAIN SATS, LUNGS DIMINISHED THROUGHOUT. TYLENOL GIVEN X1 TODAY FOR HEADACHE. TOLERATING ADA DIET, ACHS BLOOD SUGARS. VERY PLEASANT AND COOPERATIVE WITH CARE. STATES SHE IS FEELING MUCH BETTER AND IS HOPING TO DC HOME TOMORROW.
--- NOTE | 2020-05-27 05:04 | NUR ---
SHIFT SUMMARY PT A/O. PLEASANT AND COOPERATIVE. PT CONTINUED TO HAVE SOB W/ EXERTION. REQUIRING 4-6 L O2 VIA NC THIS EVENING. 4 L AT REST AND 6 W/ EXERTION. NEW TRILOGY BIPAP WITH NEW MASK ATTEMPTED THIS EVENING. PT TOLERATED FOR APPROX 4 HOURS BUT HAD SOME DIFFICULTY WITH MASK LEAKING. RT ATTEMPTED TO MAKE MASK WORK MULTIPLE TIMES AND EVENTUALLY PLACED PT BACK ON NASAL CANNULA. PT SLEPT WELL THROUGH MOST OF THE NIGHT. TELEMETRY READING SINUS TACH W/ PAC'S AT 103. POTENTIAL PLAN FOR D/C HOME TODAY. VITAL SIGNS STABLE. WILL CONTINUE TO MONITOR AND REPORT TO DAY RN.
[2020-05-27 05:14] LABS: Hematocrit 37.7 % (33.0-51.0); Hemoglobin 11.6 g/dL (11.5-16.0)
[2020-05-27 05:29] LABS: Albumin, Blood 3.2 g/dL (3.4-5.0); Anion Gap 3 mmol/L (6-16); Blood Urea Nitrogen 86 mg/dL (8-24); Bun/Creatinine Ratio 56.6 (12.0-20.0); CO2, Blood 43 mmol/L (21-32); Calcium, Blood 8.4 mg/dL (8.5-10.1); Chloride, Blood 93 mmol/L (98-108); Creatinine, Blood 1.52 mg/dL (0.40-1.00); Glomerular Filtration Rate 35 (60-); Glucose, Blood 160 mg/dL (70-99); Magnesium, Blood 2.6 mg/dL (1.6-2.4); Potassium, Blood 3.8 mmol/L (3.5-5.5); Sodium, Blood 139 mmol/L (136-145)
[2020-05-27] MEDS ORDERED: GUAI600T33 PO (17:00)
[2020-05-27] MEDS ORDERED: CITA20 PO (17:00)
--- NOTE | 2020-05-27 18:43 | NUR ---
PATIENT D/C'D TO HOME WITH FAMILY. RX MEDICATIONS FAXED TO [facility] ON [address]. DC INSTRUCTIONS AND EDUCATION DISCUSSED WITH PATIENT AND COPY PROVIDED. [facility]. [facility] WILL CALL PATIENT WITH FOLLOW UP APPT. PATIENT DENIES ANY FURTHER QUESTIONS OR CONCERNS.
--- NOTE | 2020-05-27 18:47 | NUR ---
SUMMARY: Admit 05/18/20 05/27/20 Discharge home with family. Daughter to pick her up, discussed transition of care call from Judy and schedule 1 week follow up appointment. Sent oxygen order to [facility], patient wanted to switch companys from [employer]. Now requires 4 l/m 24 hours a day and bleed into Trilogy. Patient has port for bleed in at home. Taking home Trilogy non invaisive ventilator from hospital to start using tonight. Ordered home health PT from [facility], Discussed all care coordinated prior to discharge, contact
== END 2020-05-27 18:27 | disposition home or self-care (01) | DRG 871 ==
LOC: ER 19:34 → MEDS 22:17 → PCU 22:17 → MEDS 05-19 16:33
PROVIDERS: Emergency Medicine; Family Medicine; Hospitalist; Internal Medicine Nephrology; ADMIT Family Medicine
DX: A41.9 Sepsis, unspecified organism (principal); J96.21 Acute and chronic respiratory failure with hypoxia; J96.22 Acute and chronic respiratory failure with hypercapnia; J18.9 Pneumonia, unspecified organism; I13.0 Hypertensive heart and chronic kidney disease with heart failure and stage 1 through stage 4 chronic kidney disease, or unspecified chronic kidney disease; N17.9 Acute kidney failure, unspecified; E87.1 Hypo-osmolality and hyponatremia; Z20.822 Contact with and (suspected) exposure to COVID-19; I50.9 Heart failure, unspecified; N18.30 Chronic kidney disease, stage 3 unspecified; E11.22 Type 2 diabetes mellitus with diabetic chronic kidney disease; I71.4 Abdominal aortic aneurysm, without rupture; G89.4 Chronic pain syndrome; E83.39 Other disorders of phosphorus metabolism; E87.5 Hyperkalemia; F41.1 Generalized anxiety disorder; E11.65 Type 2 diabetes mellitus with hyperglycemia; J43.9 Emphysema, unspecified; Z87.891 Personal history of nicotine dependence; E88.09 Other disorders of plasma-protein metabolism, not elsewhere classified; E03.9 Hypothyroidism, unspecified; E78.5 Hyperlipidemia, unspecified; Z99.81 Dependence on supplemental oxygen; E11.42 Type 2 diabetes mellitus with diabetic polyneuropathy; M17.11 Unilateral primary osteoarthritis, right knee; R26.0 Ataxic gait; E66.01 Morbid (severe) obesity due to excess calories; D64.9 Anemia, unspecified; R65.20 Severe sepsis without septic shock
CPT/HCPCS: 0202U; 0241U; 36415; 36600; 51700; 51702; 71045; 71250; 74176; 76770; 80048; 80053; 80069; 81003; 82248; 82550; 82803; 82947; 83036; 83605; 83690; 83735; 83880; 84100; 84132; 84145; 84484; 84550; 85014; 85018; 85025; 86038; 86140; 87040; 87070; 87205; 93005; 93010; 93306; 94640; 94660; 94664; 94667; 94668; 94761; 94762; 96365; 96367; 97110; 97116; 97161; 97166; 97530; 97535; 98960; 99285-25; A9270; A9270-GY; J0456; J0696; J1650; J1940; J1956; J2920; J2930; J7030; J7050; J7512

== ENCOUNTER 2020-05-30 23:23 | Inpatient (IN) | payer MEDICARE ==
[~2020-05-30] VITALS: Ht 160 cm; Wt 99.5 kg
[~2020-05-30 23:23] MED LIST: ALBU90OI6 INH; ATOR20 PO; CITA20 PO; GUAI600T33 PO; LOSA25 PO; METFORMIN HCL500 M2 PO; OMEP20ER PO; POTA10T PO; PRED20 PO
[2020-05-31 00:08] LABS: BASOPHILS ABSOLUTE AUTO 0.02 K/mm3 (0.00-0.23); BASOPHILS PERCENT AUTO 0 % (0-2); EOSINOPHILS ABSOLUTE AUTO 0.14 K/mm3 (0.00-0.68); EOSINOPHILS PERCENT AUTO 1 % (0-6); Hematocrit 36.7 % (33.0-51.0); Hemoglobin 10.9 g/dL (11.5-16.0); IMMATURE GRAN PERCENT AUTO 1 % (0-1); LYMPHOCYTES PERCENT AUTO 5 % (21-46); MONOCYTES ABSOLUTE AUTO 1.06 K/mm3 (0.16-1.47); MONOCYTES PERCENT AUTO 7 % (4-13); Mean Corpuscular HGB 26.7 pg (26.0-34.0); Mean Corpuscular HGB Conc 29.7 g/dL (31.5-36.5); Mean Corpuscular Volume 90 fL (80-100); Mean Platelet Volume 11.5 fL (9.1-12.4); NEUTROPHILS ABSOLUTE AUTO 14.11 K/mm3 (1.96-9.15); NEUTROPHILS PERCENT AUTO 87 % (41-73); Platelet Count 110 K/mm3 (150-400); RDW Standard Deviation 49.6 fL (35.1-46.3); Red Blood Cell Count 4.08 M/mm3 (3.80-5.20); White Blood Cell Count 16.23 K/mm3 (4.00-11.30)
[2020-05-31 00:26] LABS: Bilirubin, Total 0.8 mg/dL (0.1-1.0); Bun/Creatinine Ratio 42.5 (12.0-20.0); Creatinine, Blood 0.99 mg/dL (0.40-1.00); Globulin, Blood 3.1 g/dL (2.2-4.0); Potassium, Blood 3.6 mmol/L (3.5-5.5); Total Protein, Blood 6.1 g/dL (6.4-8.2); Troponin I 0.037 ng/mL (0.000-0.040)
--- NOTE | 2020-05-31 03:24 | NUR ---
PT ADMITTED FROM ED AT 0236, RECEIVED REPORTED FROM CONY MORGAN. PT A&OX4, ABLE TO MAKE NEEDS KNOWN. PLEASANT AND COOPERATIVE T/O ADMISSION PROCESS. PT WAS ABLE TO TRANSFER WITH SBA FROM [facility] TO BED. PT ON 3.5LPM O2 VIA NC. NO C/O ANY DISCOMFORT DURING THIS ASSESSMENT. PT CALM AND RESTED IN BED AT THIS TIME. BED AT LOWEST POSITION, CALL LIGHT WITHIN REACH.
[2020-05-31 05:22] LABS: BASOPHILS ABSOLUTE AUTO 0.01 K/mm3 (0.00-0.23); BASOPHILS PERCENT AUTO 0 % (0-2); EOSINOPHILS ABSOLUTE AUTO 0.02 K/mm3 (0.00-0.68); EOSINOPHILS PERCENT AUTO 0 % (0-6); Hematocrit 37.4 % (33.0-51.0); Hemoglobin 11.1 g/dL (11.5-16.0); IMMATURE GRAN ABSOLUTE AUTO 0.07 K/mm3 (0.00-0.10); IMMATURE GRAN PERCENT AUTO 1 % (0-1); LYMPHOCYTES ABSOLUTE AUTO 0.23 K/mm3 (0.84-5.20); LYMPHOCYTES PERCENT AUTO 2 % (21-46); MONOCYTES ABSOLUTE AUTO 0.17 K/mm3 (0.16-1.47); MONOCYTES PERCENT AUTO 1 % (4-13); Mean Corpuscular HGB 26.6 pg (26.0-34.0); Mean Corpuscular HGB Conc 29.7 g/dL (31.5-36.5); Mean Corpuscular Volume 90 fL (80-100); Mean Platelet Volume 11.4 fL (9.1-12.4); NEUTROPHILS ABSOLUTE AUTO 13.71 K/mm3 (1.96-9.15); NEUTROPHILS PERCENT AUTO 97 % (41-73); Platelet Count 87 K/mm3 (150-400); RDW Coefficient Variation 15.1 % (11.7-14.2); RDW Standard Deviation 48.9 fL (35.1-46.3); Red Blood Cell Count 4.17 M/mm3 (3.80-5.20); White Blood Cell Count 14.21 K/mm3 (4.00-11.30)
[2020-05-31 05:50] LABS: Albumin, Blood 3.1 g/dL (3.4-5.0); Bilirubin, Total 0.7 mg/dL (0.1-1.0); Bun/Creatinine Ratio 37.8 (12.0-20.0); Calcium, Blood 8.7 mg/dL (8.5-10.1); Creatinine, Blood 1.11 mg/dL (0.40-1.00); Globulin, Blood 3.2 g/dL (2.2-4.0); Potassium, Blood 3.6 mmol/L (3.5-5.5); Total Protein, Blood 6.3 g/dL (6.4-8.2)
--- NOTE | 2020-05-31 06:21 | NUR ---
PT CALM AND RESTED IN BED AT THIS TIME. NO C/O PAIN OR ANY DISCOMFORT. CONT ON 3.5LPM OF O2 VIA NC. SAT AT 93%. DENIES CP, SOB, OR N&V. BED AT LOWEST POSITION, CALL LIGHT WITHIN REACH.
--- NOTE | 2020-05-31 16:36 | NUR ---
ADMIT: 05/31/20 DISCHARGE: DX: Shortness of breath CC:cpeabody ADMIT: 05/18/20 DISCHARGE: 05/27/20 DX: arf with hypoxia CC: cpeabody ERIC CALL: Call Ad[facility]a at home for eric. RESIDENCE: Home CAREGIVER: kishore Luna, Child, Aman Blankenship, Child, DX: COPD, CKD, HTN, Heart disease, see list DME:DME: oxygen 3 l/m 24 hours, 4 ww, electric wheelchair, Bathroom Bars, new shower with bench. [facility] - Triliogy non invaisive ventilator, Oxygen switched to [facility] 4 l/m 24 hours and bleed into trilogy.CCM: none [facility] 05/27/20 SUMMARY: Admit: 05/31/20 05/31/20 Met with eric [place] letter on board, ETA discharge SUN or per Dr Gallagher. Cesario, Pulmonary Educator was concered that she may need Anxiety medication and steroids to return home with. She felt as though she was suffocating with Trilogy on and when she laid back. She is a side sleeper, unable to lay on side at home. She has a bed at home that is adustable, does not need hospital bed. Will follow for discharge planning home. cp 1. A 74-year-old female coming in with an acute chronic obstructive pulmonary disease exacerbation with a component of acute on chronic diastolic heart failure exacerbation.
--- NOTE | 2020-05-31 17:51 | NUR ---
SHIFT SUMMARY UP IN CHAIR THIS AFTERNOON. HAS BEEN INDEPENDENT TO CHAIR AND BSC. VOIDING WITH NO PROBLEM. O2 WAS A 4.5L/M BUT DECREASED TO 3L/M WITH INCREASED SOB. INCREASED BACK TO 3.5L/M WITH RESOLUTION. MEDICATED FOR PAIN ONCE TODAY WITH NO NEW REPORTS. DAUGHTER AT BEDSIDE FOR SHORT TIME. NO RESP DISTRESS NOTED BEYOND O2 BEING DECREASED.
--- NOTE | 2020-06-01 03:50 | NUR ---
SHIFT SUMMARY: VSS. AFEB. AAOX4. ABLE TO COMMUNICATE NEEDS. 02 96% ON 3.5L VIA NC. EXP WHEEZE IN [place], BASES DIM. ATIVAN AT HS, PT SLEPT THROUGH THE NIGHT W/BIPAP IN PLACE WITHOUT DIFFICULTY. SINUS TACH, 102, W/ PAC'S. SOLU MEDROL PER ORDERS. RESPS REGULAR, EVEN, NON-LABORED AT REST. PT STATES SHE IS FEELING A LOT BETTER OVERALL. NO ACUTE CONCERNS AT THIS TIME. WILL CONT TO MONITOR.
[2020-06-01 05:52] LABS: Bun/Creatinine Ratio 41.4 (12.0-20.0); Calcium, Blood 8.5 mg/dL (8.5-10.1); Creatinine, Blood 1.52 mg/dL (0.40-1.00); Potassium, Blood 4.5 mmol/L (3.5-5.5)
[2020-06-01 11:13] LABS: BASOPHILS ABSOLUTE AUTO 0.02 K/mm3 (0.00-0.23); BASOPHILS PERCENT AUTO 0 % (0-2); EOSINOPHILS PERCENT AUTO 0 % (0-6); Hematocrit 36.8 % (33.0-51.0); Hemoglobin 10.8 g/dL (11.5-16.0); IMMATURE GRAN ABSOLUTE AUTO 0.07 K/mm3 (0.00-0.10); IMMATURE GRAN PERCENT AUTO 0 % (0-1); LYMPHOCYTES ABSOLUTE AUTO 0.48 K/mm3 (0.84-5.20); LYMPHOCYTES PERCENT AUTO 3 % (21-46); MONOCYTES ABSOLUTE AUTO 0.11 K/mm3 (0.16-1.47); MONOCYTES PERCENT AUTO 1 % (4-13); Mean Corpuscular HGB 27.2 pg (26.0-34.0); Mean Corpuscular HGB Conc 29.3 g/dL (31.5-36.5); Mean Corpuscular Volume 93 fL (80-100); Mean Platelet Volume 12.4 fL (9.1-12.4); NEUTROPHILS ABSOLUTE AUTO 15.18 K/mm3 (1.96-9.15); NEUTROPHILS PERCENT AUTO 96 % (41-73); Platelet Count 123 K/mm3 (150-400); RDW Coefficient Variation 15.2 % (11.7-14.2); Red Blood Cell Count 3.97 M/mm3 (3.80-5.20); White Blood Cell Count 15.86 K/mm3 (4.00-11.30)
--- NOTE | 2020-06-01 17:52 | NUR ---
06/01/[address] Gallagher, ETA discharge back home . Will follow for discharge planning, will need Home health resumed at discharge. Mil, PT OT.
--- NOTE | 2020-06-01 18:03 | NUR ---
SHIFT SUMMARY PT HAD EPISODE OF FEELING LIKE A PIECE OF APPLE GOT STUCK IN HER THROAT AND WAS ATTEMPTING TO COUGH IT UP WITH DIFFICULTY. SATS BEGAN DROPPING. NEBULIZER CALLED FOR AND SLOWLY PT WAS ABLE TO RECOVER. O2 PLACED IN MOUTH AT THE TIME WITH SATS IMPROVING. PT HAS BEEN WITHOUT RESP DIFFICULTY SINCE EPISODE. TOOK A SHOWER AND REPORTED MINIMAL SOB WITH ACTIVITY. WALKING TO BATHROOM INDEPENDENTLY AFTER BEING SEEN BY P.T. AND RECEIVING APPROVAL. GRANDSON IN TO VISIT.
--- NOTE | 2020-06-02 05:39 | NUR ---
SHIFT SUMMARY NO ACUTE CHANGES TO REPORT THIS SHIFT. PT HAS TOLERATED HER BIPAP WELL WITH A PAIN PILL AND ATIVAN RIGHT BEFORE BED. PT STATES THE COMBO HAS WORKED WELL FOR HER IN ALLEVIATING PAIN AND THE ANXIETY THAT COMES WITH WEARING THE BIPAP. SATS WNL T/O THE NIGHT. VITALS STABLE. PT INDEPENDENT IN THE ROOM, AND HAS HAD A RESTFUL NIGHT. BED IN LOWEST POSITION, CALL LIGHT WITHIN REACH.
[2020-06-02 05:44] LABS: BASOPHILS ABSOLUTE AUTO 0.01 K/mm3 (0.00-0.23); BASOPHILS PERCENT AUTO 0 % (0-2); EOSINOPHILS PERCENT AUTO 0 % (0-6); Hematocrit 34.9 % (33.0-51.0); Hemoglobin 10.6 g/dL (11.5-16.0); IMMATURE GRAN ABSOLUTE AUTO 0.09 K/mm3 (0.00-0.10); IMMATURE GRAN PERCENT AUTO 1 % (0-1); LYMPHOCYTES ABSOLUTE AUTO 0.44 K/mm3 (0.84-5.20); LYMPHOCYTES PERCENT AUTO 3 % (21-46); MONOCYTES ABSOLUTE AUTO 0.15 K/mm3 (0.16-1.47); MONOCYTES PERCENT AUTO 1 % (4-13); Mean Corpuscular HGB 27.2 pg (26.0-34.0); Mean Corpuscular HGB Conc 30.4 g/dL (31.5-36.5); Mean Corpuscular Volume 90 fL (80-100); Mean Platelet Volume 11.4 fL (9.1-12.4); NEUTROPHILS ABSOLUTE AUTO 12.72 K/mm3 (1.96-9.15); NEUTROPHILS PERCENT AUTO 95 % (41-73); Platelet Count 119 K/mm3 (150-400); RDW Coefficient Variation 15.4 % (11.7-14.2); RDW Standard Deviation 49.9 fL (35.1-46.3); White Blood Cell Count 13.41 K/mm3 (4.00-11.30)
[2020-06-02 06:01] LABS: Bun/Creatinine Ratio 55.1 (12.0-20.0); Calcium, Blood 8.5 mg/dL (8.5-10.1); Creatinine, Blood 1.58 mg/dL (0.40-1.00); Potassium, Blood 4.8 mmol/L (3.5-5.5)
--- NOTE | 2020-06-02 11:23 | NUR ---
CALLED DR ALBERT- PT HAD A 2 SECOND RUN OF SVT RATE UP TO 170-180 PER SAP BASIS ADMINISTRATOR EDDIE. RYTHM STRIP IN HAND. CHECKED VITALS. PT STATED SHE WAS SITTING IN HER CHAIR AND WHEN QUESTIONED PT STATED SHE HAD A MOMENT THAT FELT LIKE A HICCUP FOR 1 SECOND SHE HAD TO CATCH HER BREATH BUT SHE STATED SHE "BARELY NOTICED." CALLED WHO CAME TO THE BEDSIDE AND REVIEWED THE RYTHM STRIP. PT HAS BEEN SITTING UP IN A CHAIR MOST OF THE MORNING AND HER FEET NOW HAVE +1 EDEMA ONLY TRACE EDEMA WAS NOTED ON ASSESSMENT THIS MORNING.
--- NOTE | 2020-06-02 15:00 | NUR ---
PT HR IS NOW STABLE AT LESS THAN 100. WILL CTM.
--- NOTE | 2020-06-02 18:18 | NUR ---
SHIFT SUMMARY- PT HAD A SHORT RUN OF SVT TODAY, SEE PREVIOUS NOTES FOR DETAILS. MED CHANGES WERE MADE AND PT HR HAS REMAINED STABLE. PT HAS NAPPED OFF AND ON T/O THE AFTERNOON USING BIPAP WHEN STAFF DISCOVERED SHE WAS SLEEPING. PT HAS BEEN TOLLERATING THE BIPAP WELL, ATIVAN HELPS ALOT (PER PT). PT IS CURRENTLY SITTING UP IN THE CHAIR EATING DINNER. PT C/O SOME PAIN IN HER LOW BACK AND REQUESTED FLEXERIL WHICH SEEMED TO HELP. O2 SATS MAINTAIN AT 88% OR BETTER ON 4L VIA NC HOWEVER WHEN THE PT AMBULATES HER SATS DROP TO THE LOW 80'S. SATS MAINTAIN WITH AMBULATION AROUND THE ROOM AT 5L VIA NC. THE PT DOES NOT CALL BEFORE AMBULATING SO O2 WAS KEPT AT 5L WHILE SHE WAS UP IN THE CHAIR FOR SAFETY TO PREVENT SOB AND POTENTIAL FALL R/T SOB. SPOKE WITH RT ZENDEJAS THIS MORNING AND SHE IS AWARE OF THE INCREASED O2 REQUIREMENT WITH ACTIVITY.
--- NOTE | 2020-06-02 18:45 | NUR ---
ASSUMED CARE RECEIVED REPORT FROM CONY RUIZ. PT SITTING UP IN CHAIR, NO ACUTE S/S DISTRESS NOTED, RESPS E/U, O2 SATS STABLE ON 5L/NC. DENIES NEEDS AT THIS TIME. CALL LIGHT, POSSESSIONS IN REACH. CONTINUE TO MONITOR.
--- NOTE | 2020-06-03 04:52 | NUR ---
SHIFT SUMMARY PT ASLEEP, NO ACUTE DISTRESS NOTED. WAS MONITORED EVERY 1-2 HOURS WITH NEEDS MET. NO ACUTE NEEDS NOTED AT THIS TIME. HAS BEEN WEARING BIPAP FOR 8 HOURS OF NOW, APPEARS TO BE TOLERATING WELL, AFTER ADMINISTRATION OF PO ATIVAN AT HS. VS REVIEWED, WNL; O2 SATS STABLE ON BIPAP, IN MID 90'S. RESPS E/U. NO CARDIAC EVENTS OVERNIGHT, HR AVERAGING IN THE 60-70'S. DENIES CP, PRESSURE, NO C/O "HICCUPS." DENIES PAIN. CALL LIGHT, POSSESSIONS IN REACH, WILL MONITOR AND PROVIDE CARE UNTIL REPORT GIVEN TO DAY RN.
[2020-06-03 05:13] LABS: BASOPHILS ABSOLUTE AUTO 0.01 K/mm3 (0.00-0.23); BASOPHILS PERCENT AUTO 0 % (0-2); EOSINOPHILS PERCENT AUTO 0 % (0-6); Hematocrit 35.1 % (33.0-51.0); Hemoglobin 10.4 g/dL (11.5-16.0); IMMATURE GRAN ABSOLUTE AUTO 0.08 K/mm3 (0.00-0.10); IMMATURE GRAN PERCENT AUTO 1 % (0-1); LYMPHOCYTES ABSOLUTE AUTO 0.62 K/mm3 (0.84-5.20); LYMPHOCYTES PERCENT AUTO 5 % (21-46); MONOCYTES PERCENT AUTO 6 % (4-13); Mean Corpuscular HGB 26.7 pg (26.0-34.0); Mean Corpuscular HGB Conc 29.6 g/dL (31.5-36.5); Mean Corpuscular Volume 90 fL (80-100); Mean Platelet Volume 11.9 fL (9.1-12.4); NEUTROPHILS ABSOLUTE AUTO 12.25 K/mm3 (1.96-9.15); NEUTROPHILS PERCENT AUTO 89 % (41-73); Platelet Count 128 K/mm3 (150-400); RDW Coefficient Variation 15.3 % (11.7-14.2); RDW Standard Deviation 49.9 fL (35.1-46.3); Red Blood Cell Count 3.89 M/mm3 (3.80-5.20); White Blood Cell Count 13.76 K/mm3 (4.00-11.30)
[2020-06-03 05:37] LABS: Albumin, Blood 2.8 g/dL (3.4-5.0); Bilirubin, Total 0.4 mg/dL (0.1-1.0); Bun/Creatinine Ratio 67.9 (12.0-20.0); Calcium, Blood 7.6 mg/dL (8.5-10.1); Creatinine, Blood 1.56 mg/dL (0.40-1.00); Globulin, Blood 2.9 g/dL (2.2-4.0); Potassium, Blood 5.1 mmol/L (3.5-5.5); Total Protein, Blood 5.7 g/dL (6.4-8.2)
[2020-06-03] MEDS ORDERED: TUSSIN MUC100 MG/5 M PO (14:32)
--- NOTE | 2020-06-03 16:42 | NUR ---
DISCHARGE NOTE- PT WAS GIVEN VERBAL AND WRITTEN DISCHARGE INSTRUCTIONS AND ACKNOWLEDGED UNDERSTANDING OF THEM. PT GRANDSON PRESENT FOR DISCHARGE TEACHING. PT HAD HER HOME O2 WITH HER AT THE TIME OF DISCHARGE SET TO 6L. PT IV AND TELE WERE DC'D PRIOR TO DISCHARGE AND PT WAS ESCORTED OUT VIA WC BY THE PHLEBOTOMY INSTRUCTOR. NO S&S OF DISTRESS AT THE TIME OF DISCHARGE.
[2020-06-04 16:09] LABS: HEPARIN INDUCED PLATELET AB 0.069 OD (0.000-0.400)
== END 2020-06-03 16:28 | disposition home or self-care (01) | DRG 291 ==
LOC: ER 23:23 → MEDS 05-31 02:25
PROVIDERS: Emergency Medicine; Internal Medicine; ADMIT Internal Medicine
DX: I13.0 Hypertensive heart and chronic kidney disease with heart failure and stage 1 through stage 4 chronic kidney disease, or unspecified chronic kidney disease (principal); I50.33 Acute on chronic diastolic (congestive) heart failure; J96.21 Acute and chronic respiratory failure with hypoxia; I47.1 Supraventricular tachycardia; J43.9 Emphysema, unspecified; N18.30 Chronic kidney disease, stage 3 unspecified; E11.22 Type 2 diabetes mellitus with diabetic chronic kidney disease; G62.9 Polyneuropathy, unspecified; E03.9 Hypothyroidism, unspecified; Z99.81 Dependence on supplemental oxygen; D69.6 Thrombocytopenia, unspecified; F41.9 Anxiety disorder, unspecified
CPT/HCPCS: 36415; 71045; 71250; 80048; 80053; 82947; 83605; 83880; 84484; 85025; 86022; 87040; 87070; 87205; 94640; 94644; 94660; 94664; 94668; 94760; 94761; 94762; 96365; 96367; 96375; 97110; 97162; 97165; 97535; 98960; 99285-25; A9270; J0456; J0696; J1100; J1650; J1940; J2405; J2930; J7050; J7512

== ENCOUNTER 2020-06-06 11:43 | Inpatient (IN) | payer MEDICARE ==
[~2020-06-06] VITALS: Ht 160 cm; Wt 99.5 kg
[~2020-06-06 11:43] MED LIST changes: +TUSSIN MUC100 MG/5 M PO
[2020-06-06 12:07] LABS: BASOPHILS ABSOLUTE AUTO 0.02 K/mm3 (0.00-0.23); BASOPHILS PERCENT AUTO 0 % (0-2); EOSINOPHILS ABSOLUTE AUTO 0.15 K/mm3 (0.00-0.68); EOSINOPHILS PERCENT AUTO 1 % (0-6); Hematocrit 34.6 % (33.0-51.0); Hemoglobin 10.4 g/dL (11.5-16.0); IMMATURE GRAN ABSOLUTE AUTO 0.03 K/mm3 (0.00-0.10); IMMATURE GRAN PERCENT AUTO 0 % (0-1); LYMPHOCYTES ABSOLUTE AUTO 0.69 K/mm3 (0.84-5.20); LYMPHOCYTES PERCENT AUTO 7 % (21-46); MONOCYTES ABSOLUTE AUTO 0.73 K/mm3 (0.16-1.47); MONOCYTES PERCENT AUTO 7 % (4-13); Mean Corpuscular HGB 27.4 pg (26.0-34.0); Mean Corpuscular HGB Conc 30.1 g/dL (31.5-36.5); Mean Corpuscular Volume 91 fL (80-100); Mean Platelet Volume 11.7 fL (9.1-12.4); NEUTROPHILS ABSOLUTE AUTO 9.03 K/mm3 (1.96-9.15); NEUTROPHILS PERCENT AUTO 85 % (41-73); Platelet Count 81 K/mm3 (150-400); RDW Coefficient Variation 15.3 % (11.7-14.2); RDW Standard Deviation 50.7 fL (35.1-46.3); Red Blood Cell Count 3.79 M/mm3 (3.80-5.20); White Blood Cell Count 10.65 K/mm3 (4.00-11.30)
[2020-06-06 12:22] LABS: Bilirubin, Total 0.5 mg/dL (0.1-1.0); Bun/Creatinine Ratio 37.8 (12.0-20.0); Calcium, Blood 8.6 mg/dL (8.5-10.1); Creatinine, Blood 1.11 mg/dL (0.40-1.00); Globulin, Blood 2.9 g/dL (2.2-4.0); Potassium, Blood 4.3 mmol/L (3.5-5.5); Total Protein, Blood 5.9 g/dL (6.4-8.2); Troponin I 0.03 ng/mL (0.000-0.040)
[2020-06-06] MEDS ORDERED: CARV6.25 PO (13:38)
[2020-06-06] MEDS ORDERED: LORA1 PO (13:39)
[2020-06-06] MEDS ORDERED: Prednisone10 MG PO (13:40)
[2020-06-06] MEDS ORDERED: BUME2 PO (13:41)
[2020-06-06] MEDS ORDERED: GABAPENTIN600 MG PO (13:42)
[2020-06-06] MEDS ORDERED: SPIRIVA RESPIMAT4 G3 INH (13:42)
[2020-06-06] MEDS ORDERED: OXYCODONE-ACET1 EAC3 PO (13:42)
[2020-06-06] MEDS ORDERED: SYNTHROID137 MCG PO (13:43)
[2020-06-06] MEDS ORDERED: AZIT250 PO (13:43)
[2020-06-06] MEDS ORDERED: HYDRA25 PO (13:43)
[2020-06-06] MEDS ORDERED: CYCL10 PO (13:43)
[2020-06-06] MEDS ORDERED: METF500 PO (13:44)
[2020-06-06] MEDS ORDERED: SYMBICORT 16010.2 GM INH (13:44)
[2020-06-06] MEDS ORDERED: ROFL500T PO (13:44)
[2020-06-06] MEDS ORDERED: PRINIVIL10 MG PO (13:44)
[2020-06-06] MEDS ORDERED: IPRAT-ALBUT 0.5-3 ML INH (13:45)
[2020-06-06] MEDS ORDERED: Aspir 8181 MG PO (13:45)
--- NOTE | 2020-06-06 16:49 | NUR ---
PATIENT ARRIVED TO ROOM 324 AT 1635. RT SET UP CONTINUOUS PULSE OXIMETRY AND DECREASED HER O2 TO 2L NC. SATURATIONS OF 92%.
--- NOTE | 2020-06-06 18:11 | NUR ---
PATIENT IS ALERT AND ORIENTED AND COOPERATIVE WITH CARE. SHE IS A SBA TOT HE BSC. USES A WALKER AT HOME. ON 3L O2 VIA NC AT THIS TIME WITH O2 SATURATIONS AT 95%. TELE IS IN PLACE, NSR AT 93 BPM. A PICTURE OF A WOUND ON THE PATIENT'S LEFT BUTTOCKS WAS PLACED ON THE CHART. WILL CONTINUE TO MONITOR
--- NOTE | 2020-06-07 04:01 | NUR ---
SHIFT SUMMARY ASSUMED CARE OF PT AT 1900. PT IS A/OX4. HEART SOUNDS REGULAR. LUNG SOUNDS HAVE EXPIRATORY WHEEZES AND TIGHT. RT CONSULTED WITH CARE, PT RECEIVED BREATHING TREATMENTS T/O THE NIGHT. PT TOLERATED BIPAP WELL DURING THE NIGHT AFTER TAKING HER ATIVAN. PT STATES SHE CANT'T HAVE THE BIPAP ON WITHOUT IT BEUCASE IT MAKES HER FEEL CLAUSTROPHOBIC. PT CONTIENT T/O THE NIGHT. PT ACUTE EVENTS DURING THE NIGHT. PT SLEPT T/O THE NIGHT. CALL LIGHT IN REACH, BED IN LOWEST POSITION.
--- NOTE | 2020-06-07 15:58 | NUR ---
SHIFT SUMMARY- PT ALERT AND ORIENTED, SHE HAS BEEN VERY GROGGY T/O THE SHIFT TODAY. SHE REQUESTED THE BIPAP MACHINE WHEN SHE TOOK HER NAP. O2 SATS SEEM TO BE MAINTAINING WELL AT THIS TIME. RT HAS BEEN TITRATING THE PT O2 SHE IS CURRENTLY ON 2L VIA NC. SATS WENT DOWN TO 87% WHILE THE PT WAS WORKING WITH THERAPY BUT WENT BACK UP WITH REST. PT WAS WILLING TO WORK WITH THERAPY BOTH OT AND PT, ALTHOUGH SHE STATED SHE JUST FEELS REALLY TIRED TODAY. PLAN IS FOR THE PT TO DISCHARGE HOME WITH HOME HEALTH AT THIS TIME. CARE MANAGEMENT IS INVOLVED. PT HAS BEEN IN THE HOSPITAL FREQUENTLY FOR THIS ISSUE, DR PANDEY. SOME MED CHANGES TODAY SEE MAR FOR DETAILS.
--- NOTE | 2020-06-07 15:59 | NUR ---
06/07/20 Met with Adwoa, She is struggling with wearing the Trilogy at home, it is a different bipap than here at the hospital. She promised her Grandson would bring Trilogy to the hospital so RT can work with her here to become adjusted to the different delivery. Palliative care to meet with Adwoa. Pulmonary consult ordered. Per Dr Villafana, no ETA for discharge at this time., New face to face needed for discharge [facility]. cp
--- NOTE | 2020-06-07 17:15 | NUR ---
ADMIT: 06/06/20 DISCHARGE: DX: respiratory failure CC: [email or web address] ADMIT: 05/31/20 DISCHARGE: 06/03/20 DX: SHORTNESS OF BREATH ADMIT: 05/18/20 DISCHARGE: 05/27/20 DX: ARF WITH HYPOXIA CC: ERIC CALL: CALL ROSE AT HOME FOR ERIC RESIDENCE: Home CAREGIVER: ESTEVAN BROWN, CHILD, JONAH QUIROGA, CHILD, Always has someone with her 24 hours a day. DX: COPD, CKD, HTN, HEART DISEASE, SEE LIST DME: OXYGEN 4 rest 6 l/m activity , 4 WW, ELECTRIC WHEELCHAIR, BATHROOM BARS, NEW SHOWER WITH BENCH. LINCARE - TRILIOGY NON INVAISIVE VENTILATOR, OXYGEN SWITCHED TO LINCARE 4 L/M 24 HOURS AND BLEED INTO TRILOGY CCM: none HOME HEALTH: [facility] 05/27/20. resumed 06/03/20 s/w summer at [employer].
--- NOTE | 2020-06-07 19:01 | NUR ---
Spiritual care note: Per admit trigger, I met with Adwoa to offer information on advanced care planning. She informed me that she has a completed Advanced Directive at home. Advised that it would be helpful to have a copy of this on file at [facility]. She odalis ask her grand-daughter to bring a copy in. For now, Adwoa is happy with her Full Code status.
--- NOTE | 2020-06-08 00:58 | NUR ---
74 year old Female with 3rd hospitalization in recent month continues on oxygen 3 l nc & bioxx with no destas noted. HAs C02 retention oh home bipap rx on recent dc home. She says she is unable to tolerate home bipap so needs antianxiety rx to tolerate. Was on ativan 1 mg at HS but that was DC & Klonipin started for anxiety with helpful effect. On IV steroids & PT currently sleeping & tolearating home bipap use.
[2020-06-08 05:22] LABS: BASOPHILS PERCENT AUTO 0 % (0-2); EOSINOPHILS PERCENT AUTO 0 % (0-6); Hematocrit 35.7 % (33.0-51.0); Hemoglobin 11.2 g/dL (11.5-16.0); IMMATURE GRAN ABSOLUTE AUTO 0.05 K/mm3 (0.00-0.10); IMMATURE GRAN PERCENT AUTO 1 % (0-1); LYMPHOCYTES ABSOLUTE AUTO 0.45 K/mm3 (0.84-5.20); LYMPHOCYTES PERCENT AUTO 5 % (21-46); MONOCYTES ABSOLUTE AUTO 0.18 K/mm3 (0.16-1.47); MONOCYTES PERCENT AUTO 2 % (4-13); Mean Corpuscular HGB 28.1 pg (26.0-34.0); Mean Corpuscular HGB Conc 31.4 g/dL (31.5-36.5); Mean Corpuscular Volume 90 fL (80-100); Mean Platelet Volume 10.9 fL (9.1-12.4); NEUTROPHILS ABSOLUTE AUTO 9.32 K/mm3 (1.96-9.15); NEUTROPHILS PERCENT AUTO 93 % (41-73); Platelet Count 106 K/mm3 (150-400); RDW Coefficient Variation 15.4 % (11.7-14.2); RDW Standard Deviation 49.8 fL (35.1-46.3); Red Blood Cell Count 3.99 M/mm3 (3.80-5.20)
[2020-06-08 05:46] LABS: Bilirubin, Total 0.7 mg/dL (0.1-1.0); Calcium, Blood 8.5 mg/dL (8.5-10.1); Creatinine, Blood 1.38 mg/dL (0.40-1.00); Magnesium, Blood 2.4 mg/dL (1.6-2.4); Phosphorus, Blood 3.2 mg/dL (2.5-4.9); Potassium, Blood 4.4 mmol/L (3.5-5.5)
--- NOTE | 2020-06-08 08:54 | NUR ---
CALLED DR BETH- PT HAS PO AND IV LASIX ORDERED. ORDER RECIEVED TO DC IV LASIX. CONTINUE WITH PO LASIX.
--- NOTE | 2020-06-08 14:51 | NUR ---
CALLED DR BETH- PT SBP 108, SHE IS USUALLY HIGHER. PT RECIEVING SCHEDULED HYDRALIZINE ORDER RECIEVED FOR NEW PARAMETERS HOLD FOR SBP LESS THAN 130.
--- NOTE | 2020-06-08 18:23 | NUR ---
SHIFT SUMMARY- PT HAS HAD NO ACUTE CHANGE T/O GABY SHIFT. SHE REMAINS A 1PA FOR SAFETY AND AI CARE WITH THE SMALL SORE ON HER BUTTOCKS. PT HAS HER PERSONAL TRILOGY BIPAP MACHINE IN THE ROOM. PT HAS BEEN MORE ALERT TODAY WHEN COMPARED TO YESTERDAY. STATED TO THE PT SHE HAS TO CHOOSE THE ATIVAN OR THE AMBIEN PT CAN NOT TAKE BOTH. PT IS AWARE. PT HAS REQUESTED HER ATIVAN ABOUT 1 HOUR PRIOR TO BEDTIME.
[2020-06-09] MEDS ORDERED: PRED20 (14:03)
[2020-06-09] MEDS ORDERED: ABAT250V (14:03)
[2020-06-09] MEDS ORDERED: FURO20 PO (14:04)
[2020-06-09] MEDS ORDERED: LACT PO (14:05)
[2020-06-09] MEDS ORDERED: METO25ER PO (14:05)
[2020-06-09] MEDS ORDERED: GUAI600T33 PO (14:05)
[2020-06-09] MEDS ORDERED: CLON.5 PO (14:06)
[2020-06-09] MEDS ORDERED: LEVFLO500 PO (14:06)
--- NOTE | 2020-06-09 15:52 | NUR ---
DISCHARGE NOTE- PT ALERT AND ORIENTED 1P SBA FOR SAFETY. PT DASHA WAS PRESENT FOR DISCHARGE INSTRUCTIONS. PT IV AND TELE WERE DC'D AT THE TIME OF DISCHARGE. PT HAD NO S&S OF DISTRESS. GRANDSON BROUGHT PT HOME O2 TANK FOR PT DISCHARGE. NO FURTHER QUESTIONS AT THE TIME OF DISCHARGE. PT WAS ESCORTED OUT VIA WC BY THE SALESPERSON SHEET MUSIC.
[2020-06-09 16:11] LABS: HEPARIN INDUCED PLATELET AB 0.058 OD (0.000-0.400)
--- NOTE | 2020-06-09 16:25 | NUR ---
SUMMARY: Admit 06/06/20 06/09/20 Discharge home with family. [facility], PT OT Nurse Family to pick her up today, stop by pharmacy for new meds Tolerating Trilogy well. Oxygen 3 l/m rest 4-5 activity. 3 bleed into trilogy. Expecting lamont call to schedule follow up appointment with Derrick.
== END 2020-06-09 15:21 | disposition home health service (06) | DRG 189 ==
LOC: ER 11:43 → MEDS 11:44 → ER 14:05 → MEDS 16:35
PROVIDERS: Emergency Medicine; Hospitalist; ADMIT Internal Medicine
DX: J96.21 Acute and chronic respiratory failure with hypoxia (principal); I13.0 Hypertensive heart and chronic kidney disease with heart failure and stage 1 through stage 4 chronic kidney disease, or unspecified chronic kidney disease; I50.32 Chronic diastolic (congestive) heart failure; J98.11 Atelectasis; J44.1 Chronic obstructive pulmonary disease with (acute) exacerbation; Z23 Encounter for immunization; Z20.822 Contact with and (suspected) exposure to COVID-19; N18.30 Chronic kidney disease, stage 3 unspecified; E11.22 Type 2 diabetes mellitus with diabetic chronic kidney disease; E11.42 Type 2 diabetes mellitus with diabetic polyneuropathy; E03.9 Hypothyroidism, unspecified; J44.9 Chronic obstructive pulmonary disease, unspecified; D69.6 Thrombocytopenia, unspecified; F41.9 Anxiety disorder, unspecified; G89.4 Chronic pain syndrome; Z87.891 Personal history of nicotine dependence; Z88.0 Allergy status to penicillin; Z79.82 Long term (current) use of aspirin; Z79.84 Long term (current) use of oral hypoglycemic drugs; Z79.52 Long term (current) use of systemic steroids; Z79.899 Other long term (current) drug therapy
CPT/HCPCS: 36415; 71045; 80053; 82947; 83735; 83880; 84100; 84145; 84484; 85025; 86022; 87070; 87205; 93005; 93010; 94640; 94660; 94667; 94762; 96365; 96372-59; 96375; 97116; 97161; 97165; 97535; 99285-25; A9270; J1650; J1940; J1956; J2920; J2930

== ENCOUNTER 2020-08-07 17:20 | Inpatient (IN) | payer MEDICARE ==
[~2020-08-07] VITALS: Ht 160 cm; Wt 76.2 kg
[~2020-08-07 17:20] MED LIST changes: +ABAT250V; +AZIT250 PO; +Aspir 8181 MG PO; +BUME2 PO; +CARV6.25 PO; +CLON.5 PO; +CYCL10 PO; +FURO20 PO; +GABAPENTIN600 MG PO; +HYDRA25 PO; +IPRAT-ALBUT 0.5-3 ML INH; +LACT PO; +LEVFLO500 PO; +LORA1 PO; +METF500 PO; +METO25ER PO; +OXYCODONE-ACET1 EAC3 PO; +PRED20; +PRINIVIL10 MG PO; +Prednisone10 MG PO; +ROFL500T PO; +SPIRIVA RESPIMAT4 G3 INH; +SYMBICORT 16010.2 GM INH; +SYNTHROID137 MCG PO
[2020-08-07 18:06] LABS: BASOPHILS ABSOLUTE AUTO 0.05 K/mm3 (0.00-0.23); BASOPHILS PERCENT AUTO 1 % (0-2); EOSINOPHILS ABSOLUTE AUTO 0.88 K/mm3 (0.00-0.68); EOSINOPHILS PERCENT AUTO 9 % (0-6); Hematocrit 31.8 % (33.0-51.0); Hemoglobin 9.8 g/dL (11.5-16.0); IMMATURE GRAN ABSOLUTE AUTO 0.02 K/mm3 (0.00-0.10); IMMATURE GRAN PERCENT AUTO 0 % (0-1); LYMPHOCYTES ABSOLUTE AUTO 1.39 K/mm3 (0.84-5.20); LYMPHOCYTES PERCENT AUTO 15 % (21-46); MONOCYTES ABSOLUTE AUTO 0.78 K/mm3 (0.16-1.47); MONOCYTES PERCENT AUTO 8 % (4-13); Mean Corpuscular HGB 26.6 pg (26.0-34.0); Mean Corpuscular HGB Conc 30.8 g/dL (31.5-36.5); Mean Corpuscular Volume 86 fL (80-100); Mean Platelet Volume 10.7 fL (9.1-12.4); NEUTROPHILS ABSOLUTE AUTO 6.29 K/mm3 (1.96-9.15); NEUTROPHILS PERCENT AUTO 67 % (41-73); Platelet Count 252 K/mm3 (150-400); RDW Coefficient Variation 15.9 % (11.7-14.2); RDW Standard Deviation 50.4 fL (35.1-46.3); Red Blood Cell Count 3.69 M/mm3 (3.80-5.20); White Blood Cell Count 9.41 K/mm3 (4.00-11.30)
[2020-08-07 18:31] LABS: Alanine Aminotransfer (ALT/SGP 21 U/L (12-78); Albumin, Blood 3.7 g/dL (3.4-5.0); Alk Phos 77 U/L (50-136); Anion Gap 10 mmol/L (6-16); Aspartate Aminotrans (AST/SGOT 19 U/L (12-37); Bilirubin, Total 0.4 mg/dL (0.1-1.0); Blood Urea Nitrogen 40 mg/dL (8-24); Bun/Creatinine Ratio 19.8 (12.0-20.0); CO2, Blood 28 mmol/L (21-32); Calcium, Blood 9.8 mg/dL (8.5-10.1); Chloride, Blood 97 mmol/L (98-108); Creatinine, Blood 2.02 mg/dL (0.40-1.00); Globulin, Blood 3.7 g/dL (2.2-4.0); Glomerular Filtration Rate 25 (60-); Glucose, Blood 147 mg/dL (70-99); Potassium, Blood 4.7 mmol/L (3.5-5.5); Sodium, Blood 135 mmol/L (136-145); Total Protein, Blood 7.4 g/dL (6.4-8.2); Troponin I <0.015 ng/mL (0.000-0.040)
[2020-08-07] MEDS ORDERED: ALBU90OI6 INH (18:39)
[2020-08-07] MEDS ORDERED: TRELEGY ELLIPT1 EACH INH (18:39)
[2020-08-07] MEDS ORDERED: POTA10T PO (18:40)
[2020-08-07] MEDS ORDERED: OMEP20ER PO (18:42)
[2020-08-07] MEDS ORDERED: ATOR20 PO (18:42)
[2020-08-07] MEDS ORDERED: BUME1 PO (18:43)
[2020-08-07] MEDS ORDERED: LOSA25 PO (18:44)
[2020-08-07] MEDS ORDERED: TUMS500 MG PO (18:46)
[2020-08-07 20:27] LABS: Magnesium, Blood 2.2 mg/dL (1.6-2.4); Phosphorus, Blood 5.3 mg/dL (2.5-4.9)
[2020-08-07 23:36] LABS: Base Excess Venous 4.9 mmol/L; Bicarbonate Venous 27.8 mmol/L (24.0-30.0); PO2 Venous 62.4 mmHg (38-42); pH Blood Venous 7.35 (7.34-7.37)
[2020-08-08 04:02] LABS: Source, Urine Clean Catch
[2020-08-08 04:06] LABS: Bilirubin, Urine Neg (Neg); Blood, Urine Neg (Neg); Glucose Qualitative, Urine Neg (Neg); Ketones, Urine Neg (Neg); Leukocyte Esterase, Urine 1+ (Neg); Nitrite, Urine Neg (Neg); Protein, Urine Neg (Neg); Specific Gravity, Urine 1.015 (1.003-1.022); Urobilinogen, Urine NORM (Normal)
[2020-08-08 04:11] LABS: Appearance, Urine Clear (Clear); Color, Urine Yellow (P-Yellow); Red Blood Cells, Urine 0-2 /hpf (0-2); Squamous Epithelial Cells Few /hpf (Few)
[2020-08-08 04:12] LABS: Bacteria Few /hpf
--- NOTE | 2020-08-08 04:51 | NUR ---
AUTOMATIC GRINDING MACHINE OPERATOR SUMMARY PT ADMITTED FROM ED TO UNIT APPROX 0238, RECEIVED REPORT FROM ED RN HALLIE. PT A&OX4, ABLE TO MAKE NEEDS KNOWN. PLEASANT AND COOPERATIVE TO CARE. NO C/O PAIN. DENIES CP / N&V. PT ON 5LPM O2 VIA NC, SATS >92%, SOB W/ EXERTION NOTED. PT RECEIVING TX FROM RESP THERAPY STAFF. 1P ASSIST TO BSC, PT DENIES DYSURIA. PT CALM AND RESTED IN BED AT THIS TIME. CALLS APPROPRIATELY FOR ASSISTANCE. BED AT LOWEST POSITION. CALL LIGHT WITHIN REACH.
[2020-08-08 05:13] LABS: BASOPHILS ABSOLUTE AUTO 0.03 K/mm3 (0.00-0.23); BASOPHILS PERCENT AUTO 0 % (0-2); EOSINOPHILS ABSOLUTE AUTO 0.21 K/mm3 (0.00-0.68); EOSINOPHILS PERCENT AUTO 3 % (0-6); Hematocrit 30.5 % (33.0-51.0); Hemoglobin 9.4 g/dL (11.5-16.0); IMMATURE GRAN ABSOLUTE AUTO 0.02 K/mm3 (0.00-0.10); IMMATURE GRAN PERCENT AUTO 0 % (0-1); LYMPHOCYTES ABSOLUTE AUTO 0.48 K/mm3 (0.84-5.20); LYMPHOCYTES PERCENT AUTO 7 % (21-46); MONOCYTES ABSOLUTE AUTO 0.09 K/mm3 (0.16-1.47); MONOCYTES PERCENT AUTO 1 % (4-13); Mean Corpuscular HGB 26.8 pg (26.0-34.0); Mean Corpuscular HGB Conc 30.8 g/dL (31.5-36.5); Mean Corpuscular Volume 87 fL (80-100); Mean Platelet Volume 10.3 fL (9.1-12.4); NEUTROPHILS ABSOLUTE AUTO 5.85 K/mm3 (1.96-9.15); NEUTROPHILS PERCENT AUTO 88 % (41-73); Platelet Count 178 K/mm3 (150-400); RDW Standard Deviation 50.8 fL (35.1-46.3); Red Blood Cell Count 3.51 M/mm3 (3.80-5.20); White Blood Cell Count 6.68 K/mm3 (4.00-11.30)
[2020-08-08 05:42] LABS: Albumin, Blood 3.3 g/dL (3.4-5.0); Albumin/Globulin Ratio 0.9 (0.8-1.8); Bilirubin, Total 0.4 mg/dL (0.1-1.0); Bun/Creatinine Ratio 20.1 (12.0-20.0); Calcium, Blood 9.5 mg/dL (8.5-10.1); Creatinine, Blood 1.99 mg/dL (0.40-1.00); Globulin, Blood 3.6 g/dL (2.2-4.0); Potassium, Blood 4.6 mmol/L (3.5-5.5); Total Protein, Blood 6.9 g/dL (6.4-8.2)
[2020-08-08 16:12] LABS: Influenza A, PCR NEGATIVE (NEGATIVE); Influenza B, PCR NEGATIVE (NEGATIVE); Resp Syncytial Virus, PCR NEGATIVE (NEGATIVE); SARS-Cov-2 (COVID-19) PCR, MMC NEGATIVE (NEGATIVE)
--- NOTE | 2020-08-08 19:24 | NUR ---
SHIFT SUMMARY: NO ACUTE EVENTS. NO EVENTS ON TELEMETRY, SR-ST 90-105. BREATH SOUNDS COARSE WITH SCATTERED EXP WHEEZES; IS RECEIVING NEB TX'S, WILL HAVE CPAP AND OXIMETRY TONIGHT AT HS. OXYGEN TITRATED DOWN TO 4 L/MIN NC. STITCH BONDING MACHINE TENDER HACKING COUGH, GUAFANESIN HELPS. TOLERATING PO, NO NAUSEA. DENIES PAIN. HAD VISIT FROM DAUGHTER THIS AFTERNOON.
--- NOTE | 2020-08-09 04:14 | NUR ---
ROLL FILLER SUMMARY PT A&OX4, ABLE TO MAKE NEEDS KNOWN. PLEASANT AND COOPERATIVE TO CARE. NO C/O PAIN OR ANY DISCOMFORT THIS SHIFT. PT USES CPAP DURING SLEEP. ON CONT BIOX, SATS 93-95%. RECEIVING BREATHING TX FROM RT STAFF. CALM AND RESTED IN BED T/O SHIFT. BED AT LOWEST POSITION. CALL LIGHT WITHIN REACH.
[2020-08-09 05:02] LABS: BASOPHILS ABSOLUTE AUTO 0.02 K/mm3 (0.00-0.23); BASOPHILS PERCENT AUTO 0 % (0-2); EOSINOPHILS ABSOLUTE AUTO 0.02 K/mm3 (0.00-0.68); EOSINOPHILS PERCENT AUTO 0 % (0-6); Hematocrit 29.2 % (33.0-51.0); Hemoglobin 9.1 g/dL (11.5-16.0); IMMATURE GRAN ABSOLUTE AUTO 0.06 K/mm3 (0.00-0.10); IMMATURE GRAN PERCENT AUTO 1 % (0-1); LYMPHOCYTES ABSOLUTE AUTO 0.85 K/mm3 (0.84-5.20); LYMPHOCYTES PERCENT AUTO 10 % (21-46); MONOCYTES ABSOLUTE AUTO 0.61 K/mm3 (0.16-1.47); MONOCYTES PERCENT AUTO 7 % (4-13); Mean Corpuscular HGB 26.8 pg (26.0-34.0); Mean Corpuscular HGB Conc 31.2 g/dL (31.5-36.5); Mean Corpuscular Volume 86 fL (80-100); Mean Platelet Volume 10.5 fL (9.1-12.4); NEUTROPHILS ABSOLUTE AUTO 7.01 K/mm3 (1.96-9.15); NEUTROPHILS PERCENT AUTO 82 % (41-73); Platelet Count 187 K/mm3 (150-400); White Blood Cell Count 8.57 K/mm3 (4.00-11.30)
[2020-08-09 05:27] LABS: Albumin, Blood 3.4 g/dL (3.4-5.0); Albumin/Globulin Ratio 1.1 (0.8-1.8); Bilirubin, Total 0.3 mg/dL (0.1-1.0); Bun/Creatinine Ratio 29.9 (12.0-20.0); Calcium, Blood 9.3 mg/dL (8.5-10.1); Creatinine, Blood 1.77 mg/dL (0.40-1.00); Globulin, Blood 3.2 g/dL (2.2-4.0); Potassium, Blood 4.6 mmol/L (3.5-5.5); Total Protein, Blood 6.6 g/dL (6.4-8.2)
--- NOTE | 2020-08-09 19:16 | NUR ---
ASSUMPTION OF CARE. AOX3, COOPERATIVE. LUNG SOUNDS VERY TIGHT AND DIMINISHED. NOT GETTING GOOD AIR MOVEMENT INTO THE BASES. USING INSPIROMETER AND FLUTTER VALVE. ENCOURAGED MORE DEEP BREATHING. COUGH IS NONPRODUCTIVE, HACKING AT TIMES. DENIES ANY CHEST PAIN OR DISCOMFORT DISPITE BEING TACHYCARDIC UP TO 130'S, AND DOES INCREASE WHEN SHE IS UP TO THE BATHROOM. DYSPENIC WITH EXERTION. NO EDEMA. DENIES ANY PAIN OR DISCOMFORT. DENIES ANY OTHER NEEDS AT THIS TIME. CALL LIGHT IS IN REACH.
--- NOTE | 2020-08-10 06:01 | NUR ---
SHIFT SUMMARY: AOX4, I ASSIST TO THE BATHROOM WITH WALKER. NO PAIN OR DISCOMFORT. LUNG SOUNDS EXPIRTORY WHEEZES, TIGHT WITH POOR AIR MOVEMENT IN THE BASES. USING INSPIROMETER AND FLUTTER VALVE. ENCOURAGED DEEP BREATHING WELL. COUGH IS OCCATIONAL NON-PRODUCTIVE. DYSPNEA WITH EXERTION. ON 4 LITERS WITH SATS >95%. TACHYCARDIC IN TH 110-130'S, INCREASES WITH EXERTION UP TO 140-150'S BUT RETURNS TO NORMAL. BS 225. NO EDEMA. CPAP AT NIGHT. PLAN IS POSSIBLE DC HOME TODAY. CALL LIGHT IS IN REACH.
[2020-08-10] MEDS ORDERED: Prednisone10 MG PO (14:59)
[2020-08-10] MEDS ORDERED: AZIT500 PO (15:01)
--- NOTE | 2020-08-10 17:02 | NUR ---
PT DISCHARGED THE PT VERBALIZED UNDERSTANDING OF THE DC INSTRUCTIONS, THE PT WAS WEARING PORTABLE O2 AT THE TIME OF DC, THE PTS PRESCRIPTIONS WERE FAXED TO [facility] REQUESTED, A FOLLOW UP APPOINTMENT WAS MADE WITH THE PTS DIRECTOR VIDEO BEFORE DC, THE PT WAS TRANSFERED VIA WHEELCHAIR ACCOMPANIED BY THE OIL BURNER JOURNEYMAN AND HER GRANDSON.
--- NOTE | 2020-08-10 18:33 | NUR ---
ADMIT:08/08/20 DISCHARGE: 08/10/20 DX: copd ex CC: [email or web address] ADMIT: 06/06/20 DISCHARGE: 06/09/20 DX: respiratory failure CC: cpeabody ADMIT: 05/31/20 DISCHARGE: 06/03/20 DX: SHORTNESS OF BREATH ADMIT: 05/18/20 DISCHARGE: 05/27/20 DX: ARF WITH HYPOXIA CC: ERIC CALL: CALL ROSE AT HOME FOR ERIC , 1 week f/u eric RESIDENCE: Home CAREGIVER: ESTEVAN BROWN, CHILD, JONAH QUIROGA, CHILD, Always has someone with her 24 hours a day. DX: COPD, CKD, HTN, HEART DISEASE, SEE LIST DME: OXYGEN 3 rest 4-5l/m activity , 4 WW, ELECTRIC WHEELCHAIR, BATHROOM BARS, NEW SHOWER WITH BENCH. LINCARE - TRILIOGY NON INVAISIVE VENTILATOR, OXYGEN SWITCHED TO LINCARE 4 L/M 24 HOURS AND BLEED INTO TRILOGY CCM: none HOME HEALTH:08/10/20 Patient does not need HH services at this time/ per patient. [facility] 05/27/20. resume HH 06/09/20 Admit 08/08/20 copd ex. Discharge 08/10/20, home with family. Has a ride for sheepskin pickler, will go by pharmacy to sheepskin pickler meds before home. Discussed how to order a new Bipap mask. Not interested in home health at this time. Discussed eric call and follow up appointment in 1 week. Did not identify any care needs when completing discharge assessment. cp
--- NOTE | 2020-08-11 10:02 | NUR ---
odalis have [facility] follow up with advance directive.
== END 2020-08-10 16:58 | disposition home or self-care (01) | DRG 189 ==
LOC: ER 17:20 → MEDS 08-08 01:47
PROVIDERS: Emergency Medicine; Family Medicine; Physician Assistant; ADMIT Internal Medicine
DX: J96.21 Acute and chronic respiratory failure with hypoxia (principal); I13.0 Hypertensive heart and chronic kidney disease with heart failure and stage 1 through stage 4 chronic kidney disease, or unspecified chronic kidney disease; I50.32 Chronic diastolic (congestive) heart failure; J44.1 Chronic obstructive pulmonary disease with (acute) exacerbation; J96.22 Acute and chronic respiratory failure with hypercapnia; N18.32 Chronic kidney disease, stage 3b; E11.22 Type 2 diabetes mellitus with diabetic chronic kidney disease; E11.40 Type 2 diabetes mellitus with diabetic neuropathy, unspecified; E03.9 Hypothyroidism, unspecified; M81.0 Age-related osteoporosis without current pathological fracture; K74.60 Unspecified cirrhosis of liver; E78.5 Hyperlipidemia, unspecified; I71.2 Thoracic aortic aneurysm, without rupture; Z99.81 Dependence on supplemental oxygen
CPT/HCPCS: 0241U; 36415; 71046; 71250; 74176; 80053; 81001; 82803; 82947; 83605; 83690; 83735; 83880; 84100; 84484; 85025; 87040; 87086; 93005; 93010; 94640; 94660; 94667; 94668; 94760; 94762; 97162; 97530; 99285-25; A9270; J1650; J2930; J7512

== ENCOUNTER → 2020-12-03 | Outpatient (CLI) | payer MEDICARE ==
[~2020-12-03] MED LIST changes: +AZIT500 PO; +BUME1 PO; +TRELEGY ELLIPT1 EACH INH; +TUMS500 MG PO
[2020-12-03 18:10] LABS: Protein, Urine Random 35.2 mg/dL (0.0-11.9); Protein/Creat Ratio, Ur Random 0.4
== END | disposition home or self-care (01) ==
LOC: LAB 11:15 → LAB SHORT 11:15
PROVIDERS: Internal Medicine
DX: N18.32 Chronic kidney disease, stage 3b (principal)
CPT/HCPCS: 82570; 84156

== ENCOUNTER 2021-02-14 13:25 | Emergency (ER) | payer MEDICARE ==
[~2021-02-14] VITALS: Ht 160 cm; Wt 100.7 kg
[2021-02-14 14:53] LABS: Albumin, Blood 3.5 g/dL (3.4-5.0); Bilirubin, Total 0.5 mg/dL (0.1-1.0); Bun/Creatinine Ratio 22.7 (12.0-20.0); Calcium, Blood 9.2 mg/dL (8.5-10.1); Creatinine, Blood 1.94 mg/dL (0.40-1.00); Globulin, Blood 3.6 g/dL (2.2-4.0); Potassium, Blood 5.2 mmol/L (3.5-5.5); Total Protein, Blood 7.1 g/dL (6.4-8.2)
[2021-02-14 15:30] LABS: SARS-Cov-2 (COVID-19) PCR, MMC NEGATIVE (NEGATIVE)
[2021-02-14 15:30] LABS: BASOPHILS ABSOLUTE AUTO 0.03 K/mm3 (0.00-0.23); BASOPHILS PERCENT AUTO 0 % (0-2); EOSINOPHILS ABSOLUTE AUTO 0.56 K/mm3 (0.00-0.68); EOSINOPHILS PERCENT AUTO 8 % (0-6); Hematocrit 35.9 % (33.0-51.0); IMMATURE GRAN ABSOLUTE AUTO 0.02 K/mm3 (0.00-0.10); IMMATURE GRAN PERCENT AUTO 0 % (0-1); LYMPHOCYTES ABSOLUTE AUTO 1.14 K/mm3 (0.84-5.20); LYMPHOCYTES PERCENT AUTO 15 % (21-46); MONOCYTES ABSOLUTE AUTO 0.66 K/mm3 (0.16-1.47); MONOCYTES PERCENT AUTO 9 % (4-13); Mean Corpuscular HGB 25.4 pg (26.0-34.0); Mean Corpuscular HGB Conc 30.6 g/dL (31.5-36.5); Mean Corpuscular Volume 83 fL (80-100); NEUTROPHILS ABSOLUTE AUTO 5.07 K/mm3 (1.96-9.15); NEUTROPHILS PERCENT AUTO 68 % (41-73); RDW Coefficient Variation 19.5 % (11.7-14.2); RDW Standard Deviation 58.7 fL (35.1-46.3); Red Blood Cell Count 4.33 M/mm3 (3.80-5.20); White Blood Cell Count 7.48 K/mm3 (4.00-11.30)
[2021-02-14 15:33] LABS: Mean Platelet Volume 11.1 fL (9.1-12.4); Platelet Count 72 K/mm3 (150-400)
[2021-02-14] MEDS ORDERED: AZIT250 PO (17:07)
[2021-02-14] MEDS ORDERED: CEFP200 PO (17:07)
[2021-02-14] MEDS ORDERED: PRED20 PO (17:07)
== END 2021-02-14 17:37 | disposition home or self-care (01) ==
LOC: ER 13:25
PROVIDERS: Physician Assistant
DX: J44.1 Chronic obstructive pulmonary disease with (acute) exacerbation (principal); Z88.0 Allergy status to penicillin; Z79.899 Other long term (current) drug therapy; Z79.82 Long term (current) use of aspirin
CPT/HCPCS: 36415; 71046; 80053; 85025; 96374; 99285-25; J2930; U0004

== ENCOUNTER 2021-02-17 01:19 | Inpatient (IN) | payer MEDICARE ==
[~2021-02-17] VITALS: Ht 160 cm; Wt 92.4 kg
[~2021-02-17 01:19] MED LIST changes: +CEFP200 PO; +PROAIR DIGIHAL90 MCG INH
[2021-02-17 01:30] LABS: PCO2 Arterial 56.4 mmHg (35-45); PO2 Arterial 110 mmHg (80-100); pH Blood Arterial 7.31 (7.35-7.45)
[2021-02-17 02:05] LABS: BASOPHILS ABSOLUTE AUTO 0.02 K/mm3 (0.00-0.23); BASOPHILS PERCENT AUTO 0 % (0-2); EOSINOPHILS ABSOLUTE AUTO 0.01 K/mm3 (0.00-0.68); EOSINOPHILS PERCENT AUTO 0 % (0-6); Hematocrit 37.2 % (33.0-51.0); Hemoglobin 11.1 g/dL (11.5-16.0); IMMATURE GRAN PERCENT AUTO 1 % (0-1); LYMPHOCYTES ABSOLUTE AUTO 0.59 K/mm3 (0.84-5.20); LYMPHOCYTES PERCENT AUTO 6 % (21-46); MONOCYTES ABSOLUTE AUTO 0.42 K/mm3 (0.16-1.47); MONOCYTES PERCENT AUTO 4 % (4-13); Mean Corpuscular HGB 25.9 pg (26.0-34.0); Mean Corpuscular HGB Conc 29.8 g/dL (31.5-36.5); Mean Corpuscular Volume 87 fL (80-100); Mean Platelet Volume 10.4 fL (9.1-12.4); NEUTROPHILS PERCENT AUTO 89 % (41-73); Platelet Count 199 K/mm3 (150-400); RDW Coefficient Variation 19.3 % (11.7-14.2); RDW Standard Deviation 61.2 fL (35.1-46.3); Red Blood Cell Count 4.28 M/mm3 (3.80-5.20); White Blood Cell Count 10.74 K/mm3 (4.00-11.30)
[2021-02-17] MEDS ORDERED: CITALOPRAM HBR PO (02:19)
[2021-02-17 02:28] LABS: Alanine Aminotransfer (ALT/SGP 29 U/L (12-78); Albumin, Blood 3.6 g/dL (3.4-5.0); Albumin/Globulin Ratio 0.9 (0.8-1.8); Alk Phos 64 U/L (50-136); Anion Gap 3 mmol/L (6-16); Aspartate Aminotrans (AST/SGOT 25 U/L (12-37); Bilirubin, Total 0.4 mg/dL (0.1-1.0); Blood Urea Nitrogen 54 mg/dL (8-24); Bun/Creatinine Ratio 29.7 (12.0-20.0); CO2, Blood 29 mmol/L (21-32); Calcium, Blood 8.7 mg/dL (8.5-10.1); Chloride, Blood 106 mmol/L (98-108); Creatinine, Blood 1.82 mg/dL (0.40-1.00); Globulin, Blood 3.8 g/dL (2.2-4.0); Glomerular Filtration Rate 27 (60-); Glucose, Blood 131 mg/dL (70-99); Potassium, Blood 5.4 mmol/L (3.5-5.5); Sodium, Blood 138 mmol/L (136-145); Total Protein, Blood 7.4 g/dL (6.4-8.2); Troponin I <0.015 ng/mL (0.000-0.040)
[2021-02-17] MEDS ORDERED: DILT180 PO (06:10)
[2021-02-17] MEDS ORDERED: METF500 PO (06:11)
--- NOTE | 2021-02-17 06:41 | NUR ---
ADMIT NOTE PT ARRIVED TO PCU FROM ED VIA ED STRETCHER AT APPROX 0430. PT WAS SLID BY 4 STAFF FROM ED STRETCHER TO PCU BED. PT A&OX4. SP02>92% ON 5L NC. PT PUT ON BIPAP W/ 5L BLEED IN BY RT UPON ARRIVAL. TELEMETRY UNREADABLE D/T HIGH HR, EKG ORDERED BY MD AGUILERA. MD AGUILERA IN ROOM TO ASSESS PT. PT CONTINENT, UP TO BSC TO URINATE AND HAVE ONE SMALL BROWN FORMED BM W/ 2 PERSON ASSIST W/ FWW. PT C/O OF SOB/ANXIETY, ATIVAN GIVEN PER EMAR. PT ORIENTED TO ROOM, CALL LIGHT. CALL LIGHT IN REACH. WILL GIVE REPORT TO ONCOMING NURSE.
--- NOTE | 2021-02-17 07:35 | NUR ---
CARE ASSUMPTION PATIENT A/OX4. PATIENT IS ANXIOUS AT TIMES. SPO2 >95% ON BIPAP 5L BLEED IN. TELE SINUS TACH 120S. VSS. PATIENT REPORTS NO CHEST PAIN, SOB, OR PAIN. LUNG SOUNDS TIGHT AND WHEEZY BILATERALLY AND T/O. BED IN LOWEST POSITION AND CALL LIGHT WITHIN REACH. WILL CONTINUE TO MONITOR AND PROVIDE CARE.
--- NOTE | 2021-02-17 16:00 | NUR ---
PATIENT TO MEDICAL FLOOR REPORT GIVEN TO MED RN. PATIENT BELONGINGS GATHERED AND WITH PATIENT. PATIENT TRANSFERED BY WHEELCHAIR ON 3L NC.
--- NOTE | 2021-02-17 17:28 | NUR ---
SHIFT SUMMARY PATIENT TRANSFERED FROM PCU AT 1600. PATIENT SETTLED INTO ROOM. PATIENT ON 3L N/C. SATURATING AT 85%. OXYGEN INCREASED TO 5L AND CPAP APPLIED. RT CALLED FOR BREATHING TREATMENT. SPUTUM SAMPLE COLLECTED. PATIENT MAINTAINING SATS ABOVE 93%. PATIENT EATING AND DRINKING WELL. PATIENT IS A SBA TO THE COMMODE. PATIENT DENIES PAIN, NAUSEA, AND SHORTNESS OF BREATH AT REST. PATIENT BECOMES VERY SHORT OF BREATH WITH ACTIVITY. PATIENT HAS COUGH THAT ALSO INCREASES WITH ACTIVITY. PATIENT IS PLEASANT AND COOPERATIVE WITH CARE.
[2021-02-17] MEDS ORDERED: Zestril30 MG PO (20:51)
[2021-02-17] MEDS ORDERED: COREG6.25 MG PO (20:56)
--- NOTE | 2021-02-17 23:40 | NUR ---
PT REQUESTING TO SLEEP ON NC DUE TO FEELING CLAUSTROPHOBIC AND SOB ON THE CPAP. PT CURRENTLY AT 98% ON THE NC WHILE LYING ON HER LEFT SIDE. RT CONSULTED AND RECOMMENDED HAVING NRB AT BEDSIDE.
--- NOTE | 2021-02-18 00:16 | NUR ---
PT REQUESTED TO PUT MASK BACK ON TO SLEEP. CPAP MASK PLACED AND PT TUCKED IN. CALL LIGHT WITHIN REACH.
--- NOTE | 2021-02-18 02:47 | NUR ---
PT AGAIN DOES NOT WANT TO SLEEP WITH CPAP MASK ON - SLEEPING ON NC AT 3L AND SATTING 97% - WILL CONTINUE TO TITRATE ACCORDING TO PULSE OX.
--- NOTE | 2021-02-18 04:25 | NUR ---
POST OFFICE CLERK SUMMARY ADMITTED FOR COPD EXACERBATION. PT IS FULL CODE. PT HAVING DIFFICULTY SLEEPING WITH CPAP AT [facility]. CURRENTLY SLEEPING ON 3L BY NC AND SATTING AROUND 95%. PT WAKES UP WITH INCREASED SOB AND WHEEZING, STILL SATTING MID 90S. MEDICATED FOR ANXIETY X2. HOUR LONG TREATMENT WAS ORDERED BUT NOT COMPLETED YET DUE TO PT SLEEPING. PT DESATS WITH EXERTION GETTING ON THE COMMODE. NO OTHER CONCERNS THIS SHIFT.
[2021-02-18 05:14] LABS: BASOPHILS ABSOLUTE AUTO 0.03 K/mm3 (0.00-0.23); BASOPHILS PERCENT AUTO 0 % (0-2); EOSINOPHILS PERCENT AUTO 0 % (0-6); Hemoglobin 11.7 g/dL (11.5-16.0); IMMATURE GRAN ABSOLUTE AUTO 0.21 K/mm3 (0.00-0.10); IMMATURE GRAN PERCENT AUTO 2 % (0-1); LYMPHOCYTES ABSOLUTE AUTO 0.68 K/mm3 (0.84-5.20); LYMPHOCYTES PERCENT AUTO 5 % (21-46); MONOCYTES ABSOLUTE AUTO 0.31 K/mm3 (0.16-1.47); MONOCYTES PERCENT AUTO 3 % (4-13); Mean Corpuscular HGB Conc 29.3 g/dL (31.5-36.5); Mean Corpuscular Volume 89 fL (80-100); NEUTROPHILS ABSOLUTE AUTO 11.28 K/mm3 (1.96-9.15); NEUTROPHILS PERCENT AUTO 90 % (41-73); Platelet Count 202 K/mm3 (150-400); RDW Coefficient Variation 18.9 % (11.7-14.2); RDW Standard Deviation 62.4 fL (35.1-46.3); White Blood Cell Count 12.51 K/mm3 (4.00-11.30)
[2021-02-18 05:48] LABS: Albumin, Blood 3.6 g/dL (3.4-5.0); Bilirubin, Total 0.3 mg/dL (0.1-1.0); Bun/Creatinine Ratio 30.4 (12.0-20.0); Calcium, Blood 8.9 mg/dL (8.5-10.1); Creatinine, Blood 2.07 mg/dL (0.40-1.00); Globulin, Blood 3.7 g/dL (2.2-4.0); Potassium, Blood 5.9 mmol/L (3.5-5.5); Total Protein, Blood 7.3 g/dL (6.4-8.2)
[2021-02-18 10:05] LABS: Source, Urine Catheter
[2021-02-18 10:09] LABS: Appearance, Urine Clear (Clear); Bilirubin, Urine Neg (Neg); Blood, Urine 1+ (Neg); Color, Urine Yellow (P-Yellow); Glucose Qualitative, Urine Neg (Neg); Ketones, Urine Neg (Neg); Leukocyte Esterase, Urine Neg (Neg); Nitrite, Urine Neg (Neg); Protein, Urine 1+ (Neg); Urobilinogen, Urine NORM (Normal)
--- NOTE | 2021-02-18 10:27 | NUR ---
LATE ENTRY COPIED FROM [facility] EMR 02/17/21 ADMIT: 02/17/21 DISCHARGE: TBD DX: COPD exacerbation CC: Nic Damon RESIDENCE: HOME INDEPENDENT CAREGIVER: ESTEVAN BROWN, CHILD, SWOKSBM WARTA, CHILD, ALWAYS HAS SOMEONE WITH HER 24 HOURS A DAY. DME: OXYGEN 3 REST 4-5L/M ACTIVITY , 4 WW, ELECTRIC WHEELCHAIR, BATHROOM BARS, NEW SHOWER WITH BENCH. LINCARE - TRILIOGY NON INVAISIVE VENTILATOR, OXYGEN SWITCHED TO LINCARE 4 L/M 24 HOURS AND BLEED INTO TRILOGY Prior to Admit - DME: As noted above CCM: None HH/Hospice: [facility] - refusing despite need over the past few months Update 02/17/21: Per chart review with Dr. Menezes, pt. not yet appropriate for discharge. Anticipated needs at time of discharge to include: PT/OT eval, home O2 eval. not necessary unless need for increase above 6 LPM, HHC at minimum, hospital F/U within 5-7 days with PCP.
[2021-02-18 10:37] LABS: Bacteria Few /hpf; Hyaline Casts 0-2 /lpf (0-2); Red Blood Cells, Urine 0-2 /hpf (0-2); Squamous Epithelial Cells Mod /hpf (Few)
[2021-02-18 11:08] LABS: PO2 Arterial 94.1 mmHg (80-100)
[2021-02-18 11:09] LABS: PCO2 Arterial 79.5 mmHg (35-45); pH Blood Arterial 7.24 (7.35-7.45)
--- NOTE | 2021-02-18 14:30 | NUR ---
Update 02/18/21: Per chart review, patient's condition as declined this morning. Pt. having increased SOB. Unable to speak in full sentences. Pt. is full code status. Dr. Myles spoke with her daughter Cole Luna this afternoon to provide an update regarding condition and to discuss prognosis/goals of care. Dr. Myles has placed palliative care referral. Left message for Alta with brief update regarding patient's condition and needs.
--- NOTE | 2021-02-18 15:46 | NUR ---
pt resting tolerating bipap. pt kps score is 30%. Dr Goncalves spoke with family about possible levels of care including intubation. We have reviewed with pt updating her advance directive on past admits. She has chosen full treatment. Will review her prognosis with family and how going forward she may be at risk for suffering and what a hospice plan would look like for her quality of life.
[2021-02-18 16:45] LABS: SARS-Cov-2 (COVID-19) PCR, MMC NEGATIVE (NEGATIVE)
[2021-02-18 17:16] LABS: Base Excess Venous 8.3 mmol/L; Bicarbonate Venous 30.7 mmol/L (24.0-30.0)
--- NOTE | 2021-02-18 19:06 | NUR ---
PT AO,PT HAVE DECREASE BILATERAL BREATH SOUND T/O LUNGS FIELD,PT IS ON TELE SINUS TACHY, PT IS ON BIPAP SATS IN THE 90S PT HAVE PETTIT DO TO EXACERBATION,PT IN BED CALL LIGHT IN REACH WILL CONTINUE TO MONITOR.
--- NOTE | 2021-02-18 23:11 | NUR ---
ASSUMPTION OF CARE 20:00 - PT BEGAN TO DESAT TO 85% , RN ENTERED THE ROOM AND PT HAD REMOVED HER BI-PAP STATING SHE WANTED TO EAT SOME OATMEAL. PT THOUGHT IT WAS THE MORNING, AND ASKED WHEN BREAKFAST WOULD BE SERVED. REORIENTED TO TIME, EXPLAINED SOME CONFUSION CAN COME FROM HYPERCAPNEA AND COPD EXCAB. RT SWITCHED PT TO A HI-ADELAIDA NC 5LPM WHICH PT IS TOLERATING BETTER THAN THE BI-PAP. SHE IS SATING ABOVE 94%. ABLE TO EAT A SNACK. SALINE LOCKED TO HER RIGHT AC. PETTIT IN PLACE AND DRAINING YELLOW CLEAR URINE. PT REPORTS ARTHRITIC PAIN TO RIGHT KNEE. REPOSITIONED ON SIDE IN BED. TELEMETRY IN PLACE, SINUS AT 108. 2145: ATTEMPTED TO PUT BI-PAP BACK ON FOR SLEEP. PT REQUESTED PRN ANTI-ANXIETY MEDICATION, STATING THE BI-PAP WAS TOO CLAUSTROPHOBIC. MEDICATED PER EMAR. RECEIVED PRN BREATHING TREATMENT FROM RT. CONTINUING TO SAT ABOVE 92% ON HI-ADELAIDA NC. RN CONSULTED WITH RT, WILL MONITOR OXYGEN AND CONTINUE WITH HI-ADELAIDA.
--- NOTE | 2021-02-19 04:33 | NUR ---
SHIFT SUMMARY ONCE PT FELL ASLEEP AROUND 2300, SHE CONTINUED TO SAT BETWEEN 95-97% ON 5LPM VIA HI-ADELAIDA NC. PT LIKES TO SIT UP AND DANGLE FEET ON EDGE OF BED WITH SUPERVISION FROM STAFF. BED ALARM ON, BED IN LOWEST POSITION. CALL LIGHT WITHIN REACH. PT CAN UTILIZE CALL LIGHT TO COMMUNICATE HER NEEDS.
[2021-02-19 05:24] LABS: Hematocrit 41.5 % (33.0-51.0); Hemoglobin 12.3 g/dL (11.5-16.0)
[2021-02-19 06:46] LABS: Albumin, Blood 3.7 g/dL (3.4-5.0); Anion Gap 6 mmol/L (6-16); Blood Urea Nitrogen 90 mg/dL (8-24); Bun/Creatinine Ratio 42.9 (12.0-20.0); CO2, Blood 34 mmol/L (21-32); Calcium, Blood 9.1 mg/dL (8.5-10.1); Chloride, Blood 100 mmol/L (98-108); Glomerular Filtration Rate 23 (60-); Glucose, Blood 151 mg/dL (70-99); Magnesium, Blood 2.9 mg/dL (1.6-2.4); Phosphorus, Blood 6.3 mg/dL (2.5-4.9); Potassium, Blood 4.6 mmol/L (3.5-5.5); Sodium, Blood 140 mmol/L (136-145)
--- NOTE | 2021-02-19 18:54 | NUR ---
SHIFT SUMMARY UP TO CHAIR WITH MEALS. 4LNC/CPAP WITH 4L BLEED IN. ENCOURAGED TO WEAR CPAP WHEN IN BED: COMPLIANT.
[2021-02-20 05:14] LABS: Hematocrit 41.2 % (33.0-51.0); Hemoglobin 12.1 g/dL (11.5-16.0)
[2021-02-20 05:53] LABS: Albumin, Blood 3.4 g/dL (3.4-5.0); Anion Gap 6 mmol/L (6-16); Blood Urea Nitrogen 112 mg/dL (8-24); Bun/Creatinine Ratio 49.3 (12.0-20.0); CO2, Blood 36 mmol/L (21-32); Calcium, Blood 8.6 mg/dL (8.5-10.1); Chloride, Blood 100 mmol/L (98-108); Creatinine, Blood 2.27 mg/dL (0.40-1.00); Glomerular Filtration Rate 21 (60-); Glucose, Blood 158 mg/dL (70-99); Magnesium, Blood 3.1 mg/dL (1.6-2.4); Phosphorus, Blood 6.4 mg/dL (2.5-4.9); Potassium, Blood 4.4 mmol/L (3.5-5.5); Sodium, Blood 142 mmol/L (136-145)
--- NOTE | 2021-02-20 07:28 | NUR ---
PATIENT IS ALERT AND OREITNTED X4. PATIENT REQUESTED BREATHING TREATMENT DUE TO SOB WITH GOOD EFFECT. PATIENT REQUESTED TO GET OUT OF BED INTO HER BEDSIDE CHAIR WITH ONE ASSIST. PATIENT REQUESTED TO USE THE BEDSIDE COMMODE AND A SMALL BM. PATIENT CONTINUES TO HAVE INTERMITTENT DESATTING WITH POSITION CHANGES. WILL CONTINUE TO MONITOR AND ENCOURAGE.
--- NOTE | 2021-02-20 19:04 | NUR ---
PT AO X 4,PT ON 3L NC, PT DESATS WITH EXERTION,PT ON TELE SINUS RYTHM,PT HAVE A PETTIT ON ,PT HAVE A BM TODAY,PT HAVE DECREASE BREATH SOUNDS T/O LUNGS FIELD,PT IN CHAIR, CALL LIGHT IN REACH WILL CONTINUE TO MONITOR.
[2021-02-21 05:18] LABS: Hemoglobin 12.2 g/dL (11.5-16.0)
[2021-02-21 05:41] LABS: Albumin, Blood 3.2 g/dL (3.4-5.0); Anion Gap 6 mmol/L (6-16); Blood Urea Nitrogen 129 mg/dL (8-24); Bun/Creatinine Ratio 60.3 (12.0-20.0); CO2, Blood 35 mmol/L (21-32); Calcium, Blood 8.6 mg/dL (8.5-10.1); Chloride, Blood 103 mmol/L (98-108); Creatinine, Blood 2.14 mg/dL (0.40-1.00); Glomerular Filtration Rate 22 (60-); Glucose, Blood 154 mg/dL (70-99); Magnesium, Blood 3.4 mg/dL (1.6-2.4); Phosphorus, Blood 7.2 mg/dL (2.5-4.9); Potassium, Blood 4.3 mmol/L (3.5-5.5); Sodium, Blood 144 mmol/L (136-145)
--- NOTE | 2021-02-21 18:39 | NUR ---
PT AO,PT ON TELE SINUS TACHY IN THE 110,PT ON 3L NC PT DROPS IN THE 70S 80S WITH ANY MOVEMENT,PT HAVE BILATERAL WHEEZES AND DECREASSE BREATH SOUNDS T/O HER LUNGS.PT IS 2 ASSIST WITH WALKER,PT PETTIT INTACT,PT IN BED, CALL LIGHT IN REACH WILL CONTINUE TO MONITOR.
--- NOTE | 2021-02-22 04:24 | NUR ---
PT IS ALERT, AWAKE, ORIENTED. SOB ON EXERTION. SINUS TACH ON TELE, HR 107. O2 [address] SAT 94%. CPAP AT HS TOLERATED WELL. SAT 99% ON CPAP. ASSISTED WITH MEEDS. SAFETY AND COMFORT MEASURES MAINTAINED. MADE SOME ATTEMPTS TO GET OOB. MILD ANXIETY AT TIMES. BED ALARM EXIT ON.
[2021-02-22 05:04] LABS: BASOPHILS ABSOLUTE AUTO 0.01 K/mm3 (0.00-0.23); BASOPHILS PERCENT AUTO 0 % (0-2); EOSINOPHILS PERCENT AUTO 0 % (0-6); Hematocrit 41.1 % (33.0-51.0); IMMATURE GRAN ABSOLUTE AUTO 0.07 K/mm3 (0.00-0.10); IMMATURE GRAN PERCENT AUTO 1 % (0-1); LYMPHOCYTES ABSOLUTE AUTO 0.44 K/mm3 (0.84-5.20); LYMPHOCYTES PERCENT AUTO 5 % (21-46); MONOCYTES ABSOLUTE AUTO 0.37 K/mm3 (0.16-1.47); MONOCYTES PERCENT AUTO 4 % (4-13); Mean Corpuscular HGB Conc 29.2 g/dL (31.5-36.5); Mean Corpuscular Volume 89 fL (80-100); Mean Platelet Volume 10.3 fL (9.1-12.4); NEUTROPHILS ABSOLUTE AUTO 8.17 K/mm3 (1.96-9.15); NEUTROPHILS PERCENT AUTO 90 % (41-73); Platelet Count 156 K/mm3 (150-400); RDW Coefficient Variation 17.4 % (11.7-14.2); RDW Standard Deviation 56.5 fL (35.1-46.3); Red Blood Cell Count 4.62 M/mm3 (3.80-5.20); White Blood Cell Count 9.06 K/mm3 (4.00-11.30)
[2021-02-22 05:14] LABS: Albumin, Blood 3.4 g/dL (3.4-5.0); Anion Gap 4 mmol/L (6-16); Blood Urea Nitrogen 130 mg/dL (8-24); Bun/Creatinine Ratio 70.7 (12.0-20.0); CO2, Blood 40 mmol/L (21-32); Calcium, Blood 8.9 mg/dL (8.5-10.1); Chloride, Blood 101 mmol/L (98-108); Creatinine, Blood 1.84 mg/dL (0.40-1.00); Glomerular Filtration Rate 27 (60-); Glucose, Blood 171 mg/dL (70-99); Phosphorus, Blood 5.5 mg/dL (2.5-4.9); Potassium, Blood 4.2 mmol/L (3.5-5.5); Sodium, Blood 145 mmol/L (136-145)
--- NOTE | 2021-02-22 17:14 | NUR ---
SHIFT SUMMARY PATIENT TRANSITIONED TO COMFORT CARE THIS SHIFT. PER DR. STEWART ORDERS, PATIENT IS A DNR. PATIENT IS VERY WEAK, STRUGGLED TO USE BSC. PATIENT BREATHING IS VERY LABORED, EVEN AT REST. PATIENT WAS MEDICATED ONCE FOR AIR HUNGER. PATIENT IS ON 4L N/C MAINTAINING SATS ABOVE 92%. TELE DC'D. PATIENT HAS BEEN NAPPING MOST OF SHIFT. PATIENT HAS POOR PO INTAKE. PETTIT IS PATENT AND DRAINING. PATIENT TO DISCHARGE TOMORROW, RIDE SET UP FOR [id number]. [facility] TO DO INTAKE AT HOME. PATIENT IS PLEASANT AND COOPERATIVE WITH CARE.
--- NOTE | 2021-02-22 17:47 | NUR ---
Per chart review this am with Dr. Cuadra, pt. appropriate for discharge. Family requesting hospice services. No preference for hospice provider when given options. Provided with potential availability for hospice intake and [facility] was requested due to availability tomorrow for same day hospital discharge and hospice intake. All chart infor faxed to [facility] for review. They have accepted pt. with intake at 2pm tomorrow 02/23/21. Family provided with update. Transport scheduled with [facility] via gurney transport. Blue form completed and in lock box outside of room (needs to go with EMS crew). [facility] will discussed DME needs with family and have all needed equipment delivered to patient's home prior to discharge. Nurse caring for pt. provided with updates. Discharge instructions and meds will need to be faxed to [facility] in the am [phone].
--- NOTE | 2021-02-22 20:00 | NUR ---
PT IN BED ASLEEP BUT EASILY AROUSED. REMAINS SOB ON EXERTION. REPOSITIONED FOR COMFORT. O2 INCREASED TO 5L NC. PT REPORTS FEELING BETTER. FLUIDS GIVEN PER PT'S REQUEST. RESTING COMFORTABLY IN BED.
[2021-02-23 05:13] LABS: Hematocrit 43.6 % (33.0-51.0); Hemoglobin 12.8 g/dL (11.5-16.0)
[2021-02-23 05:37] LABS: Albumin, Blood 3.3 g/dL (3.4-5.0); Anion Gap 2 mmol/L (6-16); Blood Urea Nitrogen 116 mg/dL (8-24); Bun/Creatinine Ratio 70.3 (12.0-20.0); CO2, Blood 40 mmol/L (21-32); Calcium, Blood 9.1 mg/dL (8.5-10.1); Chloride, Blood 101 mmol/L (98-108); Creatinine, Blood 1.65 mg/dL (0.40-1.00); Glomerular Filtration Rate 30 (60-); Glucose, Blood 147 mg/dL (70-99); Magnesium, Blood 3.3 mg/dL (1.6-2.4); Phosphorus, Blood 4.5 mg/dL (2.5-4.9); Potassium, Blood 4.9 mmol/L (3.5-5.5); Sodium, Blood 143 mmol/L (136-145)
--- NOTE | 2021-02-23 06:14 | NUR ---
PT IS RESTING IN BED COMFORTABLY. SOB WITH MINIMAL EXERTION. DESAT TO 60% WHEN ATTEMPTED TO GET OOB DURING THE NIGHT. O2 INCREASED TO 5L. PO FLUIDS GIVEN. REPOSITIONED FOR COMFORT. NO DISTRESS NOTED AT THIS TIME. SAT 97%.
--- NOTE | 2021-02-23 10:26 | NUR ---
Pt to d/c with [facility]. Dr. Cuadra to sign orders which will be faxed to [facility] and packet created and placed in pt's lock box. -nicolle ([email or web address], 10:26 AM)
--- NOTE | 2021-02-23 10:55 | NUR ---
D/c orders faxed to [facility] and copies put in lock box outside of pt's room. Per Khadijah's note from yesterday, transportation has already been set up through [facility]. ([email or web address], 10:55 AM)
[2021-02-23] MEDS ORDERED: Q-Tussin100 MG/5 M PO (11:05)
[2021-02-23] MEDS ORDERED: Ativan1 MG PO (11:06)
[2021-02-23] MEDS ORDERED: MORP20L PO (11:07)
[2021-02-23] MEDS ORDERED: ONDA4ODT MM (11:07)
[2021-02-23] MEDS ORDERED: Prednisone20 MG PO (11:08)
[2021-02-23] MEDS ORDERED: TRANSDERM-SCOP1 EAC7 TD (11:09)
--- NOTE | 2021-02-23 17:13 | NUR ---
DISCHARGE PATIENT TRANSPORTED VIA GURNEY TO [facility]. PATIENT DISCHARGED WITH HOSPICE. [facility] TO FOLLOW UP AT HOME. DISCHARGE PACKET SENT WITH PATIENT. HARD COPIES OF MEDICATIONS SENT WITH RADIATION ONCOLOGIST. MEDICATIONS FAXED TO PREFERRED PHARMACY. BELONGINGS SENT WITH PATIENT. IV REMOVED WITHOUT DIFFICULTY.
== END 2021-02-23 17:02 | disposition hospice, home (50) | DRG 189 ==
LOC: ER 01:19 → MEDS 04:15 → PCU 04:15 → SURS 04:15 → MEDS 16:07
PROVIDERS: Emergency Medicine; Family Medicine; Internal Medicine Critical Care Medicine; Internal Medicine Nephrology; ADMIT Internal Medicine
PROC: 5A09357 Assistance with Respiratory Ventilation, Less than 24 Consecutive Hours, Continuous Positive Airway Pressure (ICD-10-PCS; principal; 2021-02-17)
DX: J96.21 Acute and chronic respiratory failure with hypoxia (principal); N17.9 Acute kidney failure, unspecified; J44.1 Chronic obstructive pulmonary disease with (acute) exacerbation; I13.0 Hypertensive heart and chronic kidney disease with heart failure and stage 1 through stage 4 chronic kidney disease, or unspecified chronic kidney disease; I50.32 Chronic diastolic (congestive) heart failure; Z20.822 Contact with and (suspected) exposure to COVID-19; Z66 Do not resuscitate; I16.0 Hypertensive urgency; J96.22 Acute and chronic respiratory failure with hypercapnia; E87.5 Hyperkalemia; E11.42 Type 2 diabetes mellitus with diabetic polyneuropathy; E03.9 Hypothyroidism, unspecified; E83.41 Hypermagnesemia; D63.1 Anemia in chronic kidney disease; E21.3 Hyperparathyroidism, unspecified; N18.32 Chronic kidney disease, stage 3b; E11.51 Type 2 diabetes mellitus with diabetic peripheral angiopathy without gangrene; E88.09 Other disorders of plasma-protein metabolism, not elsewhere classified; K74.60 Unspecified cirrhosis of liver; R00.0 Tachycardia, unspecified; I25.10 Atherosclerotic heart disease of native coronary artery without angina pectoris; E78.5 Hyperlipidemia, unspecified; F41.8 Other specified anxiety disorders; G89.4 Chronic pain syndrome; M81.0 Age-related osteoporosis without current pathological fracture; E11.22 Type 2 diabetes mellitus with diabetic chronic kidney disease; Z88.0 Allergy status to penicillin; Z79.899 Other long term (current) drug therapy; Z99.81 Dependence on supplemental oxygen; Z87.891 Personal history of nicotine dependence; Z79.82 Long term (current) use of aspirin; Z79.52 Long term (current) use of systemic steroids; Z90.49 Acquired absence of other specified parts of digestive tract; Z98.890 Other specified postprocedural states
CPT/HCPCS: 36415; 36600; 71045; 76770; 80053; 80069; 81001; 82803; 82947; 83735; 83880; 84132; 84484; 85014; 85018; 85025; 87070; 87205; 93005; 93010; 93970; 94640; 94644; 94645; 94660; 94664; 94762; 96374; 96375; 97110; 97161; 97530; 99285-25; A9270; J1650; J2060; J2930; J7512; U0004